=== PATIENT | male | born 1940 | race Caucasian/White ===

== ENCOUNTER → 2016-09-08 | Outpatient (CLI) | payer OTHER ==
[~2016-09-08] MED LIST: ACET-1311 PO; ARC10 PO; ASPEC325 PO; BUSP5TAB59 PO; CLXOPS3 OPL; INSU3INJ3 SQ; LISI-725 PO; LOVA40TA3 PO; LVMIPEN SQ; LZL25 PO; NVLGI/PEN SQ; VALA1TAB PO; VENL75CA73 PO
[2016-09-08 09:09] LABS: ESTIMATED AVERAGE GLUCOSE 189 mg/dl; HA1C FLAG Normal (Normal)
== END ==
LOC: C.LABCC 08:30
PROVIDERS: ATTEND Internal Medicine
DX: E11.9 Type 2 diabetes mellitus without complications (principal)

== ENCOUNTER → 2017-01-07 | Outpatient (CLI) | payer OTHER ==
[2017-01-07 13:11] LABS: ESTIMATED AVERAGE GLUCOSE 243 mg/dl; HA1C FLAG Normal (Normal)
== END | disposition home or self-care (01) ==
LOC: C.LABCC 15:43
PROVIDERS: ATTEND Internal Medicine
DX: E11.9 Type 2 diabetes mellitus without complications (principal)

== ENCOUNTER → 2017-01-26 | Outpatient (CLI) | payer OTHER ==
[2017-01-26 13:05] LABS: BASO % 0.3 %; BASO ABS # 0.02 K/uL (0-0.2); COMPLETE YES; HEMATOCRIT 39.5 % (42-52); IG% 0.5 %; LYMPH ABS # 0.78 K/uL (1.2-3.4); MEAN CELL VOLUME 90.8 fL (80-100); MEAN CORPUSCULAR HEMOGLOBIN 30.1 pg (25-34); MEAN CORPUSCULAR HGB CONC 33.2 g/dl (32-36); MEAN PLATELET VOLUME 10.7 fL (7.4-10.4); NEUT % 73.2 %; PLATELET COUNT 192 K/uL (130-400); RED BLOOD COUNT 4.35 M/uL (4.7-6.1); WHITE BLOOD COUNT 6.52 K/uL (4.8-10.8)
[2017-01-26 14:36] LABS: ALKALINE PHOSPHATASE 105 U/L (45-117); ALT/SGPT 27 U/L (12-78); AST/SGOT 17 U/L (15-37); BLOOD UREA NITROGEN 19 mg/dl (7-18); BUN/CREATININE RATIO 22.4 (10-20); CALCIUM 8.9 mg/dl (8.5-10.1); CARBON DIOXIDE 27 mmol/L (21-32); CHLORIDE 101 mmol/L (98-107); CREATININE 0.87 mg/dl (0.60-1.40); GLUCOSE 373 mg/dl (70-99); POTASSIUM 4.2 mmol/L (3.5-5.1); SODIUM 136 mmol/L (136-145)
[2017-01-26 14:49] LABS: BETA-HYDROXYBUTYRATE 1.02 mg/dL (0.2-2.81)
--- NOTE | 2017-01-30 11:04 | CODING QUERY MEDICAL NECESSITY ---
SUPPORTING DIAGNOSIS NEEDED Dr. Frances, A supporting diagnosis is required for the test/procedure performed on this patient in order for us to be reimbursed by the patient's insurance. Please provide a supporting diagnosis for the following test/procedure listed below next to the test name along with your signature. *If there is no additional diagnosis for this patient that would support the following test/procedure please document that below next to the test/procedure. Test(s)/Procedure(s) that require a supporting diagnosis: * ([id number]) VITAMIN D ASSAY DIAGNOSIS: DATE OF SERVICE: 01/26/17 Provider Signature: Date: Thank you Jeffrey Lu [facility] Information Management Once completed, please kindly fax back to [phone] For questions please call [phone]
== END | disposition home or self-care (01) ==
LOC: C.LABCC 12:25
PROVIDERS: ATTEND Internal Medicine
DX: E11.9 Type 2 diabetes mellitus without complications (principal); I10 Essential (primary) hypertension; E78.5 Hyperlipidemia, unspecified; F03.90 Unspecified dementia, unspecified severity, without behavioral disturbance, psychotic disturbance, mood disturbance, and anxiety; F32.9 Major depressive disorder, single episode, unspecified; S72.001A Fracture of unspecified part of neck of right femur, initial encounter for closed fracture; X58.XXXA Exposure to other specified factors, initial encounter

== ENCOUNTER → 2017-06-03 | Outpatient (CLI) | payer OTHER ==
[2017-06-03 09:17] LABS: BASO % 0.1 %; BASO ABS # 0.01 K/uL (0-0.2); COMPLETE YES; EOS % 4.2 %; HEMATOCRIT 43.7 % (42-52); IG% 0.5 %; LYMPH ABS # 1.11 K/uL (1.2-3.4); MEAN CELL VOLUME 93.4 fL (80-100); MEAN CORPUSCULAR HEMOGLOBIN 31.8 pg (25-34); MEAN CORPUSCULAR HGB CONC 34.1 g/dl (32-36); MEAN PLATELET VOLUME 10.9 fL (7.4-10.4); MONO % 10.7 %; NEUT % 70.5 %; PLATELET COUNT 238 K/uL (130-400); RED BLOOD COUNT 4.68 M/uL (4.7-6.1); WHITE BLOOD COUNT 7.91 K/uL (4.8-10.8)
[2017-06-03 09:25] LABS: ALT/SGPT 27 U/L (12-78); BLOOD UREA NITROGEN 18 mg/dl (7-18); BUN/CREATININE RATIO 22.4 (10-20); CALCIUM 9.2 mg/dl (8.5-10.1); CARBON DIOXIDE 29 mmol/L (21-32); CHLORIDE 102 mmol/L (98-107); GLUCOSE 210 mg/dl (70-99); MAGNESIUM 2.2 mg/dl (1.8-2.4); POTASSIUM 4.3 mmol/L (3.5-5.1); SODIUM 136 mmol/L (136-145)
[2017-06-03 09:30] LABS: ALB/GLOB RATIO 0.9 (0.9-2); ALKALINE PHOSPHATASE 103 U/L (45-117); AST/SGOT 24 U/L (15-37); CHOLESTEROL 155 mg/dl (0-200); CHOLESTEROL/HDL RATIO 5.7; HDL CHOLESTEROL 27 mg/dl; TRIGLYCERIDES 447 mg/dl (0-150)
== END ==
LOC: C.LABCC 08:39
PROVIDERS: ATTEND Internal Medicine
DX: E78.5 Hyperlipidemia, unspecified (principal)

== ENCOUNTER → 2017-10-07 | Outpatient (CLI) | payer OTHER ==
[2017-10-07 10:07] LABS: HEMOGLOBIN A1C 8.5 % (4.5-5.6)
[2017-10-07 10:12] LABS: BLOOD UREA NITROGEN 26 mg/dl (7-18); CALCIUM 9.1 mg/dl (8.5-10.1); CARBON DIOXIDE 26 mmol/L (21-32); CHOLESTEROL 147 mg/dl (0-200); CREATININE 0.97 mg/dl (0.60-1.40); GLUCOSE 240 mg/dl (70-99); POTASSIUM 4.6 mmol/L (3.5-5.1); SODIUM 134 mmol/L (136-145)
== END ==
LOC: C.LABCC 09:11
PROVIDERS: ATTEND Internal Medicine
DX: E11.9 Type 2 diabetes mellitus without complications (principal); E78.00 Pure hypercholesterolemia, unspecified

== ENCOUNTER → 2017-11-25 | Day surgery (SDC) | payer OTHER ==
[2017-11-17 12:25] VITALS: Ht 167.6 cm; Wt 95.3 kg
--- NOTE | 2017-11-19 14:10 | PAT Medication Instructions ---
Service Date Nov 19, 2017. Current Home Medication List Acetaminophen (Tylenol), 650 MG PO Q4 Aspirin (Aspirin Chewable), 81 MG PO DAILY Bisacodyl (Dulcolax), 1 SUPP AR DIRECTED PRN for Constipation Carboxymethylcellulose Sodium (Refresh Tears), 1 DROP OPB DAILY Cholecalciferol (Vitamin D3), 1 TAB PO DAILY Docusate Sodium (Docusate Sodium), 1 CAP PO QPM Donepezil Hydrochloride (Donepezil Hcl), 1 TAB PO DAILY Gabapentin (Neurontin), 200 MG PO QPM Indapamide (Indapamide), 1 TAB PO DAILY Insulin Aspart (Novolog), 10 UNITS SC TID Insulin Detemir (Levemir), 65 UNIT SC DAILY Lisinopril (Zestril), 10 MG PO QAM Lovastatin (Mevacor), 40 MG PO DAILY Magnesium Hydroxide (Milk Of Magnesia), 30 ML PO DIRECTED PRN for Constipation Mirtazapine Soltab (Remeron Soltab), 0.5 TAB PO HS Polyethylene Glycol 3350 (Miralax), 17 GM PO DAILY PRN for Constipation Sodium Phosphate/Biphosphate (Fleet Enema), 1 EA AR DAILY PRN for Constipation Valacyclovir (Valtrex), 500 MG PO DAILY PRN for PRN Venlafaxine Hcl (Effexor), 75 MG PO DAILY Medication Instructions For Your Scheduled Surgery -Check with surgeon and prescribing physician for: Aspirin (Aspirin Chewable), 81 MG PO DAILY - DO NOT TAKE the following medications the morning of surgery: Bisacodyl (Dulcolax), 1 SUPP AR DIRECTED PRN for Constipation Cholecalciferol (Vitamin D3), 1 TAB PO DAILY Lisinopril (Zestril), 10 MG PO QAM Magnesium Hydroxide (Milk Of Magnesia), 30 ML PO DIRECTED PRN for Constipation Polyethylene Glycol 3350 (Miralax), 17 GM PO DAILY PRN for Constipation Sodium Phosphate/Biphosphate (Fleet Enema), 1 EA AR DAILY PRN for Constipation Valacyclovir (Valtrex), 500 MG PO DAILY PRN for PRN - The following medications MAY be taken the morning of surgery with a sip of water: Acetaminophen (Tylenol), 650 MG PO Q4 (if needed) Carboxymethylcellulose Sodium (Refresh Tears), 1 DROP OPB DAILY Donepezil Hydrochloride (Donepezil Hcl), 1 TAB PO DAILY Lovastatin (Mevacor), 40 MG PO DAILY Venlafaxine Hcl (Effexor), 75 MG PO DAILY - The following medications may be taken the night before surgery: Acetaminophen (Tylenol), 650 MG PO Q4 (if needed) Docusate Sodium (Docusate Sodium), 1 CAP PO QPM Gabapentin (Neurontin), 200 MG PO QPM Bisacodyl (Dulcolax), 1 SUPP AR DIRECTED PRN for Constipation (if needed) Magnesium Hydroxide (Milk Of Magnesia), 30 ML PO DIRECTED PRN for Constipation (if needed) Mirtazapine Soltab (Remeron Soltab), 0.5 TAB PO HS Polyethylene Glycol 3350 (Miralax), 17 GM PO DAILY PRN for Constipation (if needed) Sodium Phosphate/Biphosphate (Fleet Enema), 1 EA AR DAILY PRN for Constipation ( if needed) Valacyclovir (Valtrex), 500 MG PO DAILY PRN for PRN (if needed) - For Insulin Dependent Diabetic patients, follow the instructions in your colonoscopy packet for: Insulin Aspart (Novolog), 10 UNITS SC TID Insulin Detemir (Levemir), 65 UNIT SC DAILY If you have any questions please call us at [phone] or [phone] or [phone]
[~2017-11-25] VITALS: Ht 167.6 cm; Wt 95.3 kg
[~2017-11-25] MED LIST changes: -ARC10 PO; +ASPCH81X PO; -ASPEC325 PO; +BISA10SU3 PR; -BUSP5TAB59 PO; +CARB0.5D28 OPB; +CHOL20007 PO; -CLXOPS3 OPL; +DOCU100C31 PO; +DONE1TAB26 PO; +EFF75 PO; +GABA-112 PO; +INDA2.5T PO; -INSU3INJ3 SQ; +LIDOCAINE HCL 2% 2 ML VIAL (20MG/ML) ONE; +LISI-461 PO; -LISI-725 PO; -LOVA40TA3 PO; +LOVA40TA4 PO; +LVMI SC; -LVMIPEN SQ; -LZL25 PO; +MIRT15TA2 PO; +MOML PO; +NVLG SC; -NVLGI/PEN SQ; +PHENYLEPHRINE 100MCG/ML 5ML SYR ONE; +POLY335019 PO; +PROPOFOL IV EMULSION 10 MG/ML 20 ML VIAL IV ONE; +SODIENE PR; -VALA1TAB PO; +VALA500T60 PO; -VENL75CA73 PO
--- NOTE | 2017-11-25 09:44 | Endo History and Physical ---
History & Physical Date of Service: Nov 25, 2017. Chief Complaint: history of polyps Referring Physician: Dr. Castillo Frances History of Present Illness H/o polyps Past Medical History Diabetes, Alzheimer's, High Cholesterol, Hypertension Past Surgical History Hx Cardiac Surgery: No Hx Internal Defibrillator: No Hx Pacemaker: No Hx Abdominal Surgery: No Hx of Implantable Prosthesis: No Hx Post-Op Nausea and Vomiting: No Hx Cancer Surgery: Yes (BCC EXCISION) Hx Thoracic Surgery: No Hx Orthopedic: Yes (ORIF RT HIP) Hx Urinary Tract Surgery: No Social History Smoking Status: Former Smoker Hx Substance Use: No Hx Alcohol Use: No Allergies Coded Allergies: No Known Allergies (Verified , 11/25/17) Current Medications Reported Home Medications Medications Dose Route/Sig Max Daily Dose Days Date Category Dose Instructions Vitamin D3 (Cholecalciferol) 2,000 Unit Tab 1 Tab PO DAILY 11/17/17 Reported Effexor (Venlafaxine Hcl) 75 Mg Tab 75 Mg PO DAILY 11/17/17 Reported Valtrex (Valacyclovir HCl) 500 Mg Tab 500 Mg PO DAILY PRN 11/17/17 Reported Refresh Tears (Carboxymethylcellulose Sodium) 0.5 % Alfredo 1 Drop OPB DAILY 11/17/17 Reported Novolog (Insulin Aspart) 100 Units/Ml Inj 10 Units SC TID 11/17/17 Reported IN ADDITION TO SLIDING SCALE. Remeron Soltab (Mirtazapine) 15 Mg Soltab 0.5 Tab PO HS 11/17/17 Reported Milk Of Magnesia (Magnesium Hydroxide) 30 Ml Susp 30 Ml PO DIRECTED PRN 11/17/17 Reported Miralax (Polyethylene Glycol 3350) 1 Pow Pow 17 Gm PO DAILY PRN 11/17/17 Reported Mevacor (Lovastatin) 40 Mg Tab 40 Mg PO DAILY 11/17/17 Reported Zestril (Lisinopril) 10 Mg Tab 10 Mg PO QAM 11/17/17 Reported Levemir (Insulin Detemir) 100 Units/Ml Inj 65 Unit SC DAILY 11/17/17 Reported Indapamide 2.5 Mg Tab 1 Tab PO DAILY 11/17/17 Reported Neurontin (Gabapentin) 100 Mg Cap 200 Mg PO QPM 11/17/17 Reported Fleet Enema (Sodium Phosphate/Biphosphate) Jina 1 Ea [place] DAILY PRN 11/17/17 Reported Dulcolax (Bisacodyl) 10 Mg Sup 1 Supp TX DIRECTED PRN 11/17/17 Reported Donepezil Hcl (Donepezil Hydrochloride) 10 Mg Tab 1 Tab PO DAILY 11/17/17 Reported Docusate Sodium 100 Mg Cap 1 Cap PO QPM 11/17/17 Reported Aspirin Chewable (Aspirin) 81 Mg Chew 81 Mg PO DAILY 11/17/17 Reported Tylenol (Acetaminophen) 325 Mg Tab 650 Mg PO Q4 04/13/16 Reported not to exceed 3000mg/24hrs Vital Signs Weight (Kilograms): 95.27 Height (Feet): 0 Height (Inches): 66 Physical Exam General Appearance: no apparent distress Respiratory/Chest: Auscultation: breath sounds normal Cardiovascular: Heart Auscultation: RRR Abdomen: Inspection & Palpation: soft Assessment and Plan H/o polyps - cscopy
--- NOTE | 2017-11-25 10:30 | GI REPORT ---
Procedure Date: 11/25/2017 9:51 AM Procedure: Colonoscopy Indications: High risk colon cancer surveillance: Personal history of colonic polyps Medicines: See the Anesthesia note for documentation of the administered medications Complications: No immediate complications. Estimated Blood Loss: Estimated blood loss was minimal. Procedure: Pre-Anesthesia Assessment: - ASA Grade Assessment: III - A patient with severe systemic disease. After I obtained informed consent, the scope was passed under direct vision. Throughout the procedure, the patient's blood pressure, pulse, and oxygen saturations were monitored continuously. The scope was introduced through the anus and advanced to the terminal ileum. The colonoscopy was performed without difficulty. The patient tolerated the procedure well. The quality of the bowel preparation was fair. Findings: The perianal and digital rectal examinations were normal. Multiple small and large-mouthed diverticula were found in the entire colon. A 5 mm polyp was found in the ascending colon. The polyp was sessile. The polyp was removed with a cold snare. Resection and retrieval were complete. A 2 mm polyp was found in the ascending colon. The polyp was sessile. The polyp was removed with a cold biopsy forceps. Resection and retrieval were complete. Hemorrhoids on retroflexion. The exam was otherwise normal throughout the examined colon. The terminal ileum contained a single diminutive diverticulum. Ileum was normal. Impression: - Preparation of the colon was fair. - Hemorrhoids. - Diverticulosis in the entire examined colon. - One 5 mm polyp in the ascending colon, removed with a cold snare. Resected and retrieved. - One 2 mm polyp in the ascending colon, removed with a cold biopsy forceps. Resected and retrieved. - Ileal diverticulum. Recommendation: - Repeat exam in 1 year due to prep quality. - Discharge patient to home. Huy Kenyon M.D. Huy Kenyon MD 11/25/2017 10:30:03 AM This report has been signed electronically. Note Initiated On: 11/25/2017 9:51 AM I attest to the content of the Intraoperative Record and orders documented therein, exceptions below
--- NOTE | 2017-11-25 10:31 | Discharge Instructions ---
Endoscopy Patient Instructions Date / Procedure(s) Performed Nov 25, 2017. Colonoscopy Allergy Information Coded Allergies: No Known Allergies (Verified , 11/25/17) Discharge Date / Findings Nov 25, 2017. Diminutive polyp x 2 in asc colon, Diverticulosis, hemorrhoids, fair prep Provider Instructions Activity Restrictions - No exercising or heavy lifting for 24 hours. - Do not drink alcohol the day of the procedure. - Do not drive a car or operate machinery until the day after the procedure. - Do not make any important decisions or sign important papers in 24 hours after the procedure. Following Day: - Return to full activity which may include returning to work/school. Diet Start your diet with liquids and light foods (jello, soup, juice, toast). Then eat your usual diet if not nauseated. Treatment For Common After Affects For mild abdominal pain, bloating, or excessive gas: - Rest - Eat lightly - Lie on right side Follow-Up Information Follow-up with Dr. Castillo Frances as scheduled Anesthesia Information What You Should Know You have had a procedure that required some medicine to reduce anxiety and discomfort. This treatment is called moderate sedation. After receiving the treatment, you may be sleepy, but you will be able to breathe on your own. The effects of the treatment may last for several hours. Follow these instructions along with Activity/Diet recommendations noted above: * Do NOT do anything where dizziness or clumsiness would be dangerous. * Rest quietly at home today, then you can be up and about tomorrow. * Have a responsible person stay with you the rest of today. * You may have had an I.V. today. If so, you may take the dressing off later today. Recommendations Call your doctor if: * Trouble breathing * Continuous vomiting for more than 24 hours * Temperature above 101 degrees * Severe abdominal pain or bloating * Pain not relieved by pain medicine ordered * There is increased drainage or redness from any incision * A large amount of rectal bleeding greater than 2-3 tablespoons. (If you had a polyp/s removed or have hemorrhoids, a small amount of blood - from the rectum is to be expected.) * You have any unanswered questions or concerns. IN THE EVENT OF A SERIOUS EMERGENCY, GO TO THE NEAREST EMERGENCY ROOM Your discharge instructions were prepared by provider Huy Troy. Patient Instructions Signature Page Sarbjit Odom Patient (or Guardian) Signature/Date: I have read and understand the instructions given to me by my caregivers. Caregiver/RN/Doctor Signature/Date: The above-named patient and/or guardian has received patient instructions on this date. + Original Patient Signature Page (only) stays with chart. Please make copy for patient.
[2017-11-25 11:05] VITALS: BP 154/85; PULSE 96; O2SAT 98
--- NOTE | 2017-11-25 11:22 | Anesthesiology Progress Note ---
Anesthesia Post Op Note Date & Time Nov 25, 2017 at 11:22 Vital Signs Pain Intensity: 0 Vital Signs Past 12 Hours Date Time Temp Pulse Resp B/P (MAP) Pulse Ox O2 Delivery O2 Flow Rate FiO2 11/25/17 11:05 96 20 154/85 (108) 98 Room Air 11/25/17 10:45 94 20 151/76 (101) 96 Room Air 11/25/17 10:29 36.2 87 20 120/64 (82) 95 Room Air 11/25/17 09:43 36.5 99 20 133/81 (98) 97 Room Air Notes Mental Status: alert / awake / arousable, participated in evaluation Pt Amnestic to Procedure: Yes Nausea / Vomiting: adequately controlled Pain: adequately controlled Airway Patency, RR, SpO2: stable & adequate BP & HR: stable & adequate Hydration State: stable & adequate Anesthetic Complications: no major complications apparent
== END | disposition home or self-care (01) ==
LOC: C.GI 09:13
PROVIDERS: ATTEND Internal Medicine Gastroenterology
DX: Z12.11 Encounter for screening for malignant neoplasm of colon (principal); Z86.010 Personal history of colon polyps; K57.30 Diverticulosis of large intestine without perforation or abscess without bleeding; D12.2 Benign neoplasm of ascending colon; K64.9 Unspecified hemorrhoids; G30.9 Alzheimer's disease, unspecified; I10 Essential (primary) hypertension; E11.9 Type 2 diabetes mellitus without complications; E78.00 Pure hypercholesterolemia, unspecified; F32.9 Major depressive disorder, single episode, unspecified; Z98.890 Other specified postprocedural states; Z87.891 Personal history of nicotine dependence; Z79.899 Other long term (current) drug therapy; Z79.4 Long term (current) use of insulin; Z79.82 Long term (current) use of aspirin

== ENCOUNTER 2021-12-06 13:10 | Inpatient (IN) ==
--- NOTE | 2021-12-05 09:51 | PAT Medication Instructions ---
Medication Instructions Date of Service December 05, 2021 Home Medications polyethylene glycol 3350 17 gram/dose oral powder (Miralax) 17 g PO DAILY PRN acetaminophen 325 mg tablet 650 mg PO Q6 PRN MDD 3 GM APAP/24 HOURS bisacodyl 10 mg rectal suppository (Dulcolax (bisacodyl)) 10 mg SD DIRECTED PRN cholecalciferol (vitamin D3) 50 mcg (2,000 unit) capsule (Vitamin D3) 2,000 unit PO DAILY docusate sodium 100 mg capsule 100 mg PO QPM gabapentin 100 mg capsule 200 mg PO HS indapamide 2.5 mg tablet 2.5 mg PO QAM insulin aspart U-100 100 unit/mL subcutaneous solution (Novolog U-100 Insulin aspart) 10 unit SUBCUT TID lisinopril 10 mg tablet 10 mg PO QAM magnesium hydroxide 400 mg/5 mL oral suspension (Milk of Magnesia) 30 ml PO DIRECTED PRN mirtazapine 15 mg tablet 7.5 mg PO HS sodium phosphates 19 gram-7 gram/118 mL enema (Fleet Enema) 118 ml SD DIRECTED PRN valacyclovir 1 gram tablet 1,000 mg PO QAM venlafaxine 75 mg capsule,extended release 24 hr 75 mg PO QAM insulin detemir U-100 100 unit/mL (3 mL) subcutaneous pen (Levemir FlexTouch U- 100 Insulin) 40 unit SC BID insulin lispro 100 unit/mL subcutaneous pen See Rx Instructions .ROUTE .COMPLEX multivitamin 1 cap PO QAM pantoprazole 40 mg tablet,delayed release 40 mg PO DAILY PreserVision AREDS-2 2 tab PO QAM STOP taking 2 weeks before surgery (or as soon as possible if surgery is within 2 weeks) PreserVision AREDS-2 2 tab PO QAM DO NOT take the morning of surgery polyethylene glycol 3350 17 gram/dose oral powder (Miralax) 17 g PO DAILY PRN bisacodyl 10 mg rectal suppository (Dulcolax (bisacodyl)) 10 mg SD DIRECTED PRN cholecalciferol (vitamin D3) 50 mcg (2,000 unit) capsule (Vitamin D3) 2,000 unit PO DAILY indapamide 2.5 mg tablet 2.5 mg PO QAM insulin aspart U-100 100 unit/mL subcutaneous solution (Novolog U-100 Insulin aspart) 10 unit SUBCUT TID lisinopril 10 mg tablet 10 mg PO QAM magnesium hydroxide 400 mg/5 mL oral suspension (Milk of Magnesia) 30 ml PO DIRECTED PRN sodium phosphates 19 gram-7 gram/118 mL enema (Fleet Enema) 118 ml SD DIRECTED PRN insulin lispro 100 unit/mL subcutaneous pen See Rx Instructions .ROUTE .COMPLEX multivitamin 1 cap PO QAM Take morning of surgery With a small sip of water, OTHERWISE NOTHING TO EAT OR DRINK AFTER MIDNIGHT: acetaminophen 325 mg tablet 650 mg PO Q6 PRN MDD 3 GM APAP/24 HOURS (okay to take up to 4 hours prior to surgery if needed) valacyclovir 1 gram tablet 1,000 mg PO QAM venlafaxine 75 mg capsule,extended release 24 hr 75 mg PO QAM pantoprazole 40 mg tablet,delayed release 40 mg PO DAILY Take evening before surgery polyethylene glycol 3350 17 gram/dose oral powder (Miralax) 17 g PO DAILY PRN (if needed) acetaminophen 325 mg tablet 650 mg PO Q6 PRN MDD 3 GM APAP/24 HOURS (if needed) bisacodyl 10 mg rectal suppository (Dulcolax (bisacodyl)) 10 mg SD DIRECTED PRN (if needed) docusate sodium 100 mg capsule 100 mg PO QPM gabapentin 100 mg capsule 200 mg PO HS insulin aspart U-100 100 unit/mL subcutaneous solution (Novolog U-100 Insulin aspart) 10 unit SUBCUT TID magnesium hydroxide 400 mg/5 mL oral suspension (Milk of Magnesia) 30 ml PO DIRECTED PRN (if needed) mirtazapine 15 mg tablet 7.5 mg PO HS sodium phosphates 19 gram-7 gram/118 mL enema (Fleet Enema) 118 ml SD DIRECTED PRN (if needed) insulin detemir U-100 100 unit/mL (3 mL) subcutaneous pen (Levemir FlexTouch U- 100 Insulin) 40 unit SC BID insulin lispro 100 unit/mL subcutaneous pen See Rx Instructions .ROUTE .COMPLEX Insulin Dependent Diabetic Patients * Test your blood sugar the morning of surgery * If Blood Sugar is GREATER THAN 150, take HALF of your regular dose of: insulin detemir U-100 100 unit/mL (3 mL) subcutaneous pen (Levemir FlexTouch U-100 Insulin) take 20 units * If Blood Sugar is LESS THAN 150, DO NOT TAKE ANY: insulin detemir U-100 100 unit/mL (3 mL) subcutaneous pen (Levemir FlexTouch U-100 Insulin) Other Notes If you have any questions please call us at [phone] or [phone] or [phone] or [phone]
--- NOTE | 2021-12-05 10:29 | Anesthesiology Consultation ---
Date of Service December 05, 2021 Assessment & Plan Chart Review Chart Review: Acceptable Risk for Surgery and Patient NOT seen in Pre Admission Testing Consults Requested none ASA ASA4 History Surgery Operation Date: 12/06/21 15:25 Proposed Procedures p Right Ankle Partial Calcaneal Osteotomy - Dayorn Christian DO s Debridement Calcaneal Ulcer, Implantation of Antibiotic Beads - Dayron Christian DO Height/Weight Height: 5 ft 5 in Weight: 90.9 kg Allergies Allergy/AdvReac Type Severity Reaction Status Date / Time No Known Allergies Allergy Verified 12/04/21 15:23 Medications Home Medications Medication Instructions Recorded Confirmed Last Taken polyethylene glycol 3350 17 17 g PO DAILY PRN #255 g 11/17/17 12/05/21 Unknown gram/dose oral powder (Miralax) acetaminophen 325 mg tablet 650 mg PO Q6 PRN MDD 3 GM APAP/03/02/20 12/05/21 03/01/20 HOURS bisacodyl 10 mg rectal suppository 10 mg ID DIRECTED PRN 03/02/20 12/05/21 Unknown (Dulcolax (bisacodyl)) cholecalciferol (vitamin D3) 50 2,000 unit PO DAILY 03/02/20 12/05/21 06/13/21 08:00 mcg (2,000 unit) capsule (Vitamin D3) docusate sodium 100 mg capsule 100 mg PO QPM 03/02/20 12/05/21 06/12/21 20:30 gabapentin 100 mg capsule 200 mg PO HS 03/02/20 12/05/21 06/12/21 20:30 indapamide 2.5 mg tablet 2.5 mg PO QAM 03/02/20 12/05/21 06/13/21 08:00 insulin aspart U-100 100 unit/mL 10 unit SUBCUT TID 03/02/20 12/05/21 06/13/21 12:30 subcutaneous solution (Novolog U-100 Insulin aspart) lisinopril 10 mg tablet 10 mg PO QAM 03/02/20 12/05/21 06/13/21 08:00 magnesium hydroxide 400 mg/5 mL 30 ml PO DIRECTED PRN 03/02/20 12/05/21 04/03/20 09:20 oral suspension (Milk of Magnesia) mirtazapine 15 mg tablet 7.5 mg PO HS 03/02/20 12/05/21 06/12/21 20:30 sodium phosphates 19 gram-7 118 ml ID DIRECTED PRN 03/02/20 12/05/21 Unknown gram/118 mL enema (Fleet Enema) valacyclovir 1 gram tablet 1,000 mg PO QAM 03/02/20 12/05/21 06/13/21 08:00 venlafaxine 75 mg capsule,extended 75 mg PO QAM 03/02/20 12/05/21 06/13/21 08:00 release 24 hr insulin detemir U-100 100 unit/mL 40 unit SC BID 04/04/20 12/05/21 06/13/21 08:30 (3 mL) subcutaneous pen (Levemir FlexTouch U-100 Insulin) insulin lispro 100 unit/mL See Rx Instructions .ROUTE .COMPLEX 04/04/20 12/05/21 06/13/21 11:30 subcutaneous pen 12 units multivitamin 1 cap PO QAM 12/05/21 12/05/21 Unknown pantoprazole 40 mg tablet,delayed 40 mg PO DAILY 12/05/21 12/05/21 Unknown release vit C 250 mg-vit E 90 mg-zinc 40 2 tab PO QAM 12/05/21 12/05/21 Unknown mg-copper 1 [id number] capsule (PreserVision AREDS-2) Past Medical History Medical History Alzheimer's dementia Cellulitis of right lower limb hx-2020 Dementia Diabetes IDDM, Diabetic polyneuropathy Dysthymic disorder Foot osteomyelitis, right hx Herpesviral iridocyclitis Hip fracture History of colon polyps History of COVID-19 unsure when per [facility] record HTN (hypertension) Hx of skin malignancy Hyperlipidemia Major depressive disorder 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 Hx of colonoscopy Past Anesthesia History No Hx of Anesthesia Complications and No Family Hx of Anesthesia Complications History of PONV No Hx of PONV and No Hx of Motion Sickness Social History Smoking Status: Former smoker tobacco type: cigarettes Do You Dip or Chew Tobacco: No Hx Alcohol Use: No ([facility]) Hx Substance Use: No ([facility]) substance use type: does not use Testing Electrocardiogram Date: 06/05/21 Findings: + NSR @ (at 70)
--- NOTE | 2021-12-06 10:24 | History & Physical Report ---
Date of Service December 06, 2021 Assessment & Plan (1) Ulcer of right heel: Plan: Schedule a Right Ankle Partial Calcaneal Osteotomy, Debridement Calcaneal Ulcer, Implantation of Stimulan Antibiotic Beads for 12/06/2021. All potential risks, benefits, complications, alternatives, and rehab have been discussed with the patient and he and his family wish to proceed. Plan for aspirin 81 mg twice daily x4 weeks for postoperative blood clot prophylaxis. (2) Acute osteomyelitis of right calcaneus: History of Present Illness Chief Complaint: Right foot ulcer Primary Care Provider: [facility] This is a patient who has been treated for a long time for a right foot chronic plantar heel ulceration. The ulceration is failed to heal despite multiple surgical procedures. Recent imaging noted osteomyelitis at the calcaneus. He is now being set up for surgical management of the ulceration and excision of the infected portion of the calcaneus bone. Allergies Allergy/AdvReac Type Severity Reaction Status Date / Time No Known Allergies Allergy Verified 12/04/21 15:23 Home Medications Medication Instructions Recorded Confirmed Type polyethylene glycol 3350 17 17 g PO DAILY PRN #255 g 11/17/17 12/05/21 History gram/dose oral powder (Miralax) acetaminophen 325 mg tablet 650 mg PO Q6 PRN MDD 3 GM APAP/03/02/20 12/05/21 History HOURS bisacodyl 10 mg rectal suppository 10 mg OK DIRECTED PRN 03/02/20 12/05/21 History (Dulcolax (bisacodyl)) cholecalciferol (vitamin D3) 50 2,000 unit PO DAILY 03/02/20 12/05/21 History mcg (2,000 unit) capsule (Vitamin D3) docusate sodium 100 mg capsule 100 mg PO QPM 03/02/20 12/05/21 History gabapentin 100 mg capsule 200 mg PO HS 03/02/20 12/05/21 History indapamide 2.5 mg tablet 2.5 mg PO QAM 03/02/20 12/05/21 History insulin aspart U-100 100 unit/mL 10 unit SUBCUT TID 03/02/20 12/05/21 History subcutaneous solution (Novolog U-100 Insulin aspart) lisinopril 10 mg tablet 10 mg PO QAM 03/02/20 12/05/21 History magnesium hydroxide 400 mg/5 mL 30 ml PO DIRECTED PRN 03/02/20 12/05/21 History oral suspension (Milk of Magnesia) mirtazapine 15 mg tablet 7.5 mg PO HS 03/02/20 12/05/21 History sodium phosphates 19 gram-7 118 ml OK DIRECTED PRN 03/02/20 12/05/21 History gram/118 mL enema (Fleet Enema) valacyclovir 1 gram tablet 1,000 mg PO QAM 03/02/20 12/05/21 History venlafaxine 75 mg capsule,extended 75 mg PO QAM 03/02/20 12/05/21 History release 24 hr insulin detemir U-100 100 unit/mL 40 unit SC BID 04/04/20 12/05/21 History (3 mL) subcutaneous pen (Levemir FlexTouch U-100 Insulin) insulin lispro 100 unit/mL See Rx Instructions .ROUTE .COMPLEX 04/04/20 12/05/21 History subcutaneous pen multivitamin 1 cap PO QAM 12/05/21 12/05/21 History pantoprazole 40 mg tablet,delayed 40 mg PO DAILY 12/05/21 12/05/21 History release vit C 250 mg-vit E 90 mg-zinc 40 2 tab PO QAM 12/05/21 12/05/21 History mg-copper 1 [id number]-[id number] capsule (PreserVision AREDS-2) Past Med/Surg History Medical History Alzheimer's dementia Cellulitis of right lower limb hx-2020 Dementia Diabetes IDDM, Diabetic polyneuropathy Dysthymic disorder Foot osteomyelitis, right hx Herpesviral iridocyclitis Hip fracture History of colon polyps History of COVID-19 unsure when per [facility] record HTN (hypertension) Hx of skin malignancy Hyperlipidemia Major depressive disorder Non-pressure chronic ulcer of other part of right foot with muscle involvement without evidence of necrosis residential resident [facility] residential Peripheral artery disease Personal history of other malignant neoplasm of skin S/P right hip fracture IM Nail Weakness Surgical History History of incision and drainage last 06/08/30 @ [facility] and 03/02/20, MAC + PNB, no complications. Hx of colonoscopy Social History Smoking Status: Former smoker Second Hand Exposure: No; Hx Alcohol Use: No ([facility]) Hx Substance Use: No ([facility]) Preferred Language: Kittitian Communication Ability: Effective Laboratory Worker Required: No Beliefs That Will Affect Care: None Current Living Situation: Penitentiary Current Living Situation Comment: Lives at [facility] Feels Safe at Home: Yes Assistive Devices: Walker Physical Exam Constitutional: well developed and well nourished; no acute distress ENMT: external ear and nose normal, oropharynx normal Neck: trachea midline Respiratory: normal respiratory effort, lungs clear to auscultation Cardiovascular: Rate/Rhythm: regular rate and regular rhythm Gastrointestinal (Abdomen): normal bowel sounds, soft, nontender, no he patosplenomegaly Musculoskeletal: Ankle: + ankle abnormal to inspection (Plantar right heel ulcer); no skin erythema and no ecchymosis Skin: + ulcer (Plantar right heel with macerated wound edges) Neurologic: + abnormal touch/pain/proprioception Psychiatric: Orientation: alert Speech: normal rate/rhythm/volume of speech Lymphatic: no cervical or axillary lymphadenopathy
[~2021-12-06 13:10] MED LIST changes: -ACET-1311 PO; -ASPCH81X PO; -BISA10SU3 PR; +BUPIVACAINE 0.25% 30 ML VIAL ONE; -CARB0.5D28 OPB; -CHOL20007 PO; -DOCU100C31 PO; -DONE1TAB26 PO; -EFF75 PO; +EPINEPHrine INJ 1 MG/ML AMP ONE; -GABA-112 PO; +GENTAMICIN SULFATE 40 MG/ML 2 ML VIAL ONE; -INDA2.5T PO; -LIDOCAINE HCL 2% 2 ML VIAL (20MG/ML) ONE; -LISI-461 PO; -LOVA40TA4 PO; -LVMI SC; -MIRT15TA2 PO; -MOML PO; -NVLG SC; +ONDANSETRON INJ 2 MG/ML 2 ML VIAL ONE; -PHENYLEPHRINE 100MCG/ML 5ML SYR ONE; -POLY335019 PO; -SODIENE PR; +SODIUM CHLORIDE 0.9% 1000ML IV SCH; -VALA500T60 PO; +VANCOMYCIN HCL 1000MG/20ML VIAL ONE; +ceFAZolin 2000MG 2,000 MG/15 ML SYR IV SCH; +ceFAZolin 330 MG/ML 1 GM VIAL ONE
[2021-12-06] MEDS ORDERED: fentaNYL citrate 100 MCG/2 ML VIAL IV PRN (14:17)
[2021-12-06] MEDS ORDERED: ONDANSETRON INJ 2 MG/ML 2 ML VIAL IV PRN ×2 (14:17→19:01)
[2021-12-06] MEDS ORDERED: ePHEDrine sulfate 50 MG/ML AMP IV PRN (14:17)
[2021-12-06] MEDS ORDERED: ATROPINE SULFATE 0.1 MG/ML 10ML SYR IV PRN (14:17)
[2021-12-06] MEDS ORDERED: HYDROmorphone INJ 2 MG/ML SYR/VIAL IV PRN (14:17)
[2021-12-06] MEDS ORDERED: PROPOFOL IV EMULSION 10 MG/ML 20 ML VIAL IV ONE (14:25)
[2021-12-06] MEDS ORDERED: LIDOCAINE 2% 2 ML VIAL/AMP(20MG/ML) INFIL ONE (14:28)
[2021-12-06] MEDS ORDERED: fentaNYL citrate 100 MCG/2 ML VIAL ONE (14:28)
--- NOTE | 2021-12-06 15:25 | History & Physical Bridge Note ---
Date of Service December 06, 2021 History & Physical Bridge Note I have examined the patient, reviewed the History & Physical and in the interval since the performance of the History & Physical I have noted the following changes of clinical significance: no changes noted
[2021-12-06] MEDS ORDERED: ROCURONIUM BROMIDE 10 MG/ML 5 ML VIAL IV ONE (15:45)
[2021-12-06] MEDS ORDERED: ceFAZolin 330 MG/ML 1 GM VIAL ONE (16:02)
[2021-12-06] MEDS ORDERED: BUPIVACAINE 0.5 % 5 MG/1 ML MPF 30ML VIAL ONE (16:02)
[2021-12-06] MEDS ORDERED: ONDANSETRON INJ 2 MG/ML 2 ML VIAL ONE (16:50)
[2021-12-06] MEDS ORDERED: DEXAMETHASONE SOD INJ 4 MG/ML VIAL ONE (16:50)
[2021-12-06] MEDS ORDERED: NEOSTIGMINE METHYLSULFATE 1 MG/ML 10ML VIAL ONE (17:39)
[2021-12-06] MEDS ORDERED: GLYCOPYRROLATE 0.2 MG/ML VIAL ONE (17:39)
--- NOTE | 2021-12-06 17:56 | Post Operative Brief Note ---
Immediate Post Op Note v1 Date of Surgery December 06, 2021 Pre & Post Diagnosis Operation Date: 12/06/21 15:25 Pre-Op Diagnosis: Osteomyelitis right calcaneus, diabetic neuropathic ulcer of Right Heel 2.0 x 1.0 x 1.0 cm Post-Op Diagnosis: Osteomyelitis right calcaneus, diabetic neuropathic ulcer of Right Heel 2.0 x 1.0 x 1.0 cm I identified the patient and participated in the time-out.: Yes Procedure Operation Date: 12/06/21 15:25 Actual Procedures p Right Ankle Partial Calcaneal Ostectomy(Right) - Dayron Christian DO s Irrigation and debridement diabetic neuropathic plantar heel ulcer 2.0 x 1.0 x 1.0 cm including skin, subcutaneous tissue, fascia and periosteum (Right) - Dayron Christian DO Surgeon Dayron Christian DO Rectifying Attendant Dash Lynn PA-C, Renate Trevino PA-C Estimated Blood Loss 1 Findings Consistent with Post-Op Diagnosis Specimens Osteomyelitic plantar calcaneal bone for pathologic specimen Drains Other (1/2 inch iodoform gauze drains x2 separate sites plantar heel) Complications none Disposition Accompanied Patient To Recovery: No
[2021-12-06] MEDS ORDERED: MAGNESIUM HYDROXIDE SUSP 30 ML UDC PO PRN ×2 (19:01)
[2021-12-06] MEDS ORDERED: METOCLOPRAMIDE HCL INJ 5 MG/ML 2 ML VIAL IV PRN (19:01)
[2021-12-06] MEDS ORDERED: SOD PHOSPHATE/SOD BIPHOSPHATE ENEMA 132 ML BTL PR PRN (19:01)
[2021-12-06] MEDS ORDERED: NON-FORMULARY MEDICATION (Insulin Lispro 100 unit/mL Insulin Pen) SCH (19:01)
[2021-12-06] MEDS ORDERED: PHARMACY GLYCEMIC MGMT CONSULT PRN (19:01)
[2021-12-06] MEDS ORDERED: NALOXONE HCL 0.4 MG/1 ML VIAL/CARP IV PRN (19:01)
[2021-12-06] MEDS ORDERED: HYDROmorphone INJ 0.5 MG/0.5 ML SYR IV PRN (19:01)
[2021-12-06] MEDS ORDERED: oxyCODONE HCL IR 5 MG TAB (IMMEDIATE RELEASE) PO PRN (19:01)
[2021-12-06] MEDS ORDERED: diphenhydrAMINE Capsule 25 MG CAP PO PRN (19:01)
[2021-12-06] MEDS ORDERED: bisacodyL 10 MG SUPP PR PRN ×2 (19:01)
[2021-12-06] MEDS ORDERED: POLYETHYLENE (MIRALAX) 17 GM PACK PO PRN (19:01)
--- NOTE | 2021-12-06 19:17 | Anesthesiology Progress Note ---
Date of Service December 06, 2021 Anesthesia Post Procedure Vital Signs Vital Signs: Temp Pulse Pulse Pulse Resp BP Pulse Ox 12/06/21 19:02 36.3 C L 87 16 153/77 H 97 12/06/21 18:35 36.4 C L 85 18 123/56 L 98 12/06/21 18:25 83 18 114/54 L 96 12/06/21 18:15 77 16 131/67 96 12/06/21 18:07 36.0 C L 80 16 124/63 96 12/06/21 13:45 36.5 C 94 H 16 140/86 97 Transfer of Care Handoff Completed per policy Notes Mental Status: alert / awake / arousable Patient Amnestic to Procedure: Yes Nausea / Vomiting: adequately controlled Pain: adequately controlled Airway Patency, RR, SpO2: stable & adequate BP & HR: stable & adequate Hydration State: stable & adequate Anesthetic Complications: no major complications apparent
[2021-12-06] MEDS ORDERED: DEXTROSE 50% 50 ML SYRINGE IV PRN (19:30)
[2021-12-06] MEDS ORDERED: GLUCOSE 40% GEL 15 GM TUBE PO PRN (19:30)
[2021-12-06] MEDS ORDERED: GLUCOSE 10 TABS/TUBE PO PRN (19:30)
[2021-12-06] MEDS ORDERED: GLUCAGON FOR INJ 1 MG VIAL IM PRN (19:30)
--- NOTE | 2021-12-06 19:46 | Hospitalist Consultation ---
Date of Consultation December 06, 2021 Assessment & Plan (1) Acute osteomyelitis of left calcaneus: 81yo male with IDDM2, HTN, HLD, PAD, anxiety, and history of acute right calcaneus osteomyelitis who was admitted by orthopedics earlier today for a planned right ankle partial calcaneal ostectomy and irrigation/debridement of a diabetic neuropathic plantar heel ulcer. Patient tolerated the procedure well without complications. The hospitalist service was consulted for routine post-op medical management. Acute right calcaneus osteomyelitis s/p partial calcaneal ostectomy (12/06) Diabetic neuropathic plantar heel ulcer s/p irrigation/debridement (12/06) Continue cefazolin - duration deferred to orthopedic team Pain control: APAP 1000mg PO q8h Oxycodone 5-10mg PO q4h prn moderate pain Hydromorphone 0.5mg IV q4h prn severe pain Continue ASA 81mg bid x4 weeks for postoperative DVT prophylaxis, per orthopedic team IDDM2, neuropathic pain HbA1c 7.5% (11/04/21) Will hold patient's home basal insulin and place on ISS for tight BSG control (goal 120-150) postoperatively Continue BSG checks, hypoglycemic protocol Unclear why patient is not on a statin currently Was on lovastatin in the past but appears to have been discontinued in 2020; patient unsure why Lipid profile ordered; if LDL>50, will discuss with patient re: starting a high-intensity statin Continue gabapentin for neuropathic pain HTN BP intermittently elevated, though not to a concerning degree Continue home indapamide, lisinopril HLD, PAD Continue ASA Unclear why patient is not on a statin currently Was on lovastatin in the past but appears to have been discontinued in 2019; patient unsure why Lipid profile ordered; if LDL>50, will discuss with patient re: starting a high-intensity statin Anxiety Continue home mirtazapine, venlafaxine FEN: heart-healthy, DM2 diet Code status: full code DVT ppx: ASA as per orthopedic team Isolation: contact PT/OT: deferred to orthopedic team Dispo: med/surg (2) Alzheimer's dementia: (3) Diabetes: (4) Ulcer of right heel: (5) Peripheral arterial disease: (6) HTN (hypertension): (7) Foot osteomyelitis, right: (8) Diabetic ulcer of right heel associated with type 2 diabetes mellitus: Supervising Physician Co-Signing Physician Notes Attending addendum: I have supervised the medical residents activities, and agree with the H&P unless as otherwise noted. Assessment and Plan: Status post orthopedic surgery/status post partial calcaneal ostectomy for acute right calcaneus osteomyelitis/ Status post irrigation debridement for diabetic neuropathic plantar heel ulcer Seen postoperatively is medically stable Antibiotics and pain control per orthopedic admission service Diabetes mellitus- Decrease Levemir from 40 to 20 units subcu twice daily Placed on Accu-Cheks before meals and at bedtime with NovoLog coverage per scale Glycemic consult has been placed Hypertension- Indapamide and lisinopril with hold parameters, hold if bump in creatinine GERD- Continue pantoprazole Continue all other medications as noted We will follow during hospital stay History of Present Illness Attending Physician: Dayron Christian, DO History of Present Illness 81yo male with IDDM2, HTN, HLD, PAD, Alzheimer's dementia, and history of acute bilateral calcaneus osteomyelitis who was admitted by orthopedics earlier today for a planned right ankle partial calcaneal ostectomy and irrigation/debridement of a diabetic neuropathic plantar heel ulcer. Patient tolerated the procedure well without complications. The hospitalist service was consulted for routine post-op medical management. This evening, patient feels well - his only complaint is that he wants to be in the bedside chair rather than in bed, but per RN, patient has been instructed to stay in bed to avoid putting pressure on his surgical site. Patient denies pain at this time including foot or heel pain, chest pain, abdominal pain, or headache. Patient denies fever, chills, nausea, vomiting, lightheadedness, or other symptoms. Allergies Allergy/AdvReac Type Severity Reaction Status Date / Time No Known Allergies Allergy Verified 12/04/21 15:23 Home Medications Medication Instructions Recorded Confirmed Type polyethylene glycol 3350 17 17 g PO DAILY PRN #255 g 11/17/17 12/06/21 History gram/dose oral powder (Miralax) acetaminophen 325 mg tablet 650 mg PO Q6 PRN MDD 3 GM APAP/24 03/02/20 12/06/21 History HOURS bisacodyl 10 mg rectal suppository 10 mg ID DIRECTED PRN 03/02/20 12/06/21 History (Dulcolax (bisacodyl)) cholecalciferol (vitamin D3) 50 2,000 unit PO DAILY 03/02/20 12/06/21 History mcg (2,000 unit) capsule (Vitamin D3) docusate sodium 100 mg capsule 100 mg PO QPM 03/02/20 12/06/21 History gabapentin 100 mg capsule 200 mg PO HS 03/02/20 12/06/21 History indapamide 2.5 mg tablet 2.5 mg PO QAM 03/02/20 12/06/21 History insulin aspart U-100 100 unit/mL 10 unit SUBCUT TID 03/02/20 12/06/21 History subcutaneous solution (Novolog U-100 Insulin aspart) lisinopril 10 mg tablet 10 mg PO QAM 03/02/20 12/06/21 History magnesium hydroxide 400 mg/5 mL 30 ml PO DIRECTED PRN 03/02/20 12/06/21 History oral suspension (Milk of Magnesia) mirtazapine 15 mg tablet 7.5 mg PO HS 03/02/20 12/06/21 History sodium phosphates 19 gram-7 118 ml ID DIRECTED PRN 03/02/20 12/06/21 History gram/118 mL enema (Fleet Enema) valacyclovir 1 gram tablet 1,000 mg PO QAM 03/02/20 12/06/21 History venlafaxine 75 mg capsule,extended 75 mg PO QAM 03/02/20 12/06/21 History release 24 hr insulin detemir U-100 100 unit/mL 40 unit SC BID 04/04/20 12/06/21 History (3 mL) subcutaneous pen (Levemir FlexTouch U-100 Insulin) insulin lispro 100 unit/mL See Rx Instructions .ROUTE .COMPLEX 04/04/20 12/06/21 History subcutaneous pen multivitamin 1 cap PO QAM 12/05/21 12/06/21 History pantoprazole 40 mg tablet,delayed 40 mg PO DAILY 12/05/21 12/06/21 History release vit C 250 mg-vit E 90 mg-zinc 40 2 tab PO QAM 12/05/21 12/06/21 History mg-copper 1 [id number] capsule (PreserVision AREDS-2) artificial tears solution eye drops 1 drp OPHTHALMIC (EYE) QID 12/06/21 12/06/21 History Patient History Medical History Alzheimer's dementia Cellulitis of right lower limb hx-2019 Dementia Diabetes IDDM, Diabetic polyneuropathy Dysthymic disorder Foot osteomyelitis, right hx Herpesviral iridocyclitis Hip fracture History of colon polyps History of COVID-19 unsure when per [facility] record HTN (hypertension) Hx of skin malignancy Hyperlipidemia Major depressive disorder Non-pressure chronic ulcer of other part of right foot with muscle involvement without evidence of necrosis penitentiary resident [facility] penitentiary Peripheral artery disease Personal history of other malignant neoplasm of skin S/P right hip fracture IM Nail Weakness Surgical History History of incision and drainage last 06/08/30 @ [facility] and 03/02/20, MAC + PNB, no complications. Hx of colonoscopy Social History Smoking Status: Former smoker Second Hand Exposure: No; Do You Dip or Chew Tobacco: No; Tobacco Cessation Education Requested by Patient: No Hx Alcohol Use: No ([facility]) Hx Substance Use: No ([facility]) Preferred Language: Bulgarian Communication Ability: Effective Wild Animal Caretaker Required: No Beliefs That Will Affect Care: None Current Living Situation: Assisted Current Living Situation Comment: Lives at [facility] Other Information That Helps Us Care for You: No Feels Safe at Home: Yes Safety Concerns: Feels Safe At This Time Assistive Devices: Walker and Wheelchair Review of Systems Review of Systems: See HPI Physical Exam Physical Exam: Constitutional: well-appearing, no acute distress, laying in bed HEENT: MMM CV: regular rhythm, no murmur appreciated Resp: CTABL, no wheezes/rales/rhonchi appreciated, no increased work of breathing GI: soft, nondistended, nontender, BS normoactive MSK: feet and lower legs dressed bilaterally, right surgical site dressing CDI, right toes with some trace blood but no ulceration or active bleeding, LE nontender bilaterally Neuro: alert, oriented, no focal neurologic deficit appreciated Results & Data Results & Data ([facility]) Vital Signs (Past 12 Hours) Vital Signs Temp Pulse Pulse Pulse Resp BP Pulse Ox 12/06/21 19:02 36.3 C L 87 16 153/77 H 97 12/06/21 18:35 36.4 C L 85 18 123/56 L 98 12/06/21 18:25 83 18 114/54 L 96 12/06/21 18:15 77 16 131/67 96 12/06/21 18:07 36.0 C L 80 16 124/63 96 12/06/21 13:45 36.5 C 94 H 16 140/86 97 Resident Activity Tracking Resident Involvement: Resident Care Provided Care Provided: Adult Hospital Medicine (1) Foot osteomyelitis, right Osteomyelitis type: unspecified type Qualified Code(s): M86.9 - Osteomyelitis, unspecified
[2021-12-06] MEDS: INSULIN ASPART PER UNIT SC SCH (21:06)
[2021-12-06] MEDS: ASPIRIN 81 MG ECTAB PO SCH (21:07)
[2021-12-06] MEDS: DOCUSATE SODIUM 100 MG CAP PO SCH ×2 (21:08)
[2021-12-06] MEDS: GABAPENTIN 100 MG CAP PO SCH (21:08)
[2021-12-06] MEDS: MIRTAZAPINE TAB 15 MG TAB PO SCH (21:11)
[2021-12-06] MEDS: SENNA 8.6 MG TAB PO SCH (21:11)
[2021-12-06] MEDS: ARTIFICIAL TEARS OP SCH (21:16)
[2021-12-06] MEDS: INSULIN DETEMIR FLEXPEN/FLEX TOUCH 100 UNITS/ML 3ML SC ONE ×2 (21:28→22:03)
[2021-12-06] MEDS: ACETAMINOPHEN 500 MG TAB PO SCH (22:04)
[2021-12-06] MEDS: ceFAZolin 2000MG 2,000 MG/15 ML SYR IV SCH (23:10)
--- NOTE | 2021-12-07 02:44 | Operative Report (OR) ---
PREOPERATIVE DIAGNOSES: 1. Right plantar calcaneal osteomyelitis. 2. Diabetic neuropathic ulcer, right plantar heel 2.0 cm x 1.0 cm x 1.0 cm. POSTOPERATIVE DIAGNOSES: 1. Right plantar calcaneal osteomyelitis. 2. Diabetic neuropathic ulcer, right plantar heel 2.0 cm x 1.0 cm x 1.0 cm. PROCEDURE: 1. Right partial calcaneal ostectomy. 2. Irrigation and debridement, diabetic neuropathic plantar heel ulcer, 2.0 x 1.0 x 1.0 cm including skin, subcutaneous tissue, fascia, and periosteum, right. SURGEON: Dayron Christian DO. FIG BAR MACHINE OPERATOR: Due to the complex nature of the procedure, the entire surgery was performed with the school health assistant of Dash Lynn PA-C and Renate Trevino PA-C. The store assistant, under direct supervision, was involved in the actual performance of all aspects of the surgical procedure includin g hemostasis, tissue retraction and incision, instrument management, patient positioning, and wound c losure. ANESTHESIA: General, regional. SPECIMENS: Calcaneal osteomyelitic bone for pathologic specimen. DRAINS: One half inch iodoform gauze, drains x 2 separate sites, plantar and heel. COMPLICATIONS: None. BLOOD LOSS: 1 mL PERTINENT HISTORY: This is an 81-year-old gentleman who has chronic osteomyelitis of the right heel for approximately 2 years. He has had conservative care initially that has been failed. An MRI, [facility] demonstrated osteomyelitis. He had primary debridement with implantation of antibiotic beads, whic h improved the ulceration somewhat; however, the patient then had a subsequent MRI within the last se veral weeks demonstrated continued osteomyelitis. The patient is scheduled for surgery as indicated. All potential risks, benefits, complications, alternatives, rehab potential for incomplete relief of symptoms, need for further surgery, DVT, PE, , persistent pain, swelling, scarring, weakness, ne urovascular injury, wound complications, need for further amputation was discussed with the patient a nd his family, they decided to proceed with procedure as indicated. DESCRIPTION OF PROCEDURE: The patient was taken to the operative suite and placed supine on the oper ating table. After review of consent and identification of proper site, the patient was anesthetized and endotracheal tube was placed. The patient was then rolled prone over bolsters. All bony promin ences were properly padded and protected and a tourniquet was applied high on the right thigh over ca st padding. Right lower extremity was then sterilely prepped and draped in usual fashion. The right lower extremity was then elevated and partially exsanguinated proximal to the calcaneus with an [facility] bandage and tourniquet inflated to 350 mmHg. Next, a midline incision was made with a 15-blade scalpel and then a small ellipse was made around th e sinus tract for the ulcer. This was deepened full thickness down to the level of periosteum and eliana ne. Next, the ellipse was then tailed off proximal and distal for a gentle curvature of the tissue f laps. Next, the ellipse of tissue was then passed off and next the skin and tissue was then elevated full thickness down to the level of bone. Hohmann retractors were placed around the calcaneal tuber osity. The region of concern based upon the MRI findings was carefully dissected free and then a sag ittal saw, with a large battery saw was then used to excise the plantar aspect of the calcaneus with a margin of approximately 9-10 mm into healthy tissue and bone according to the MRI findings. This w edge of bone was then passed off for pathological assessment for osteomyelitis. Next, a secondary cu t was made in a more vertical angle to remove the remainder of the tuberosity. The edges were feathe red and bevelled using a sagittal saw using soft tissue retractors and then a bone rasp was then used to smooth and contour the remainder of the calcaneus. Next, the pulse lavage with Ancef 3 liters wa s used to lavage the entirety of the heel and bone. Next, a 15 blade scalpel was then used to debrid e the skin and subcutaneous tissue, fascia, and periosteum of any necrotic or questionable tissue. N ext, final irrigation was performed with pulse lavage and then one half inch iodoform gauze packing, drains were placed proximal and distal poles of the incision and then a full-thickness closure was pe rformed with interrupted buried 2-0 Vicryl and 2-0 nylon sutures on the surface of the skin loosely a pproximating tissue. Next, an ankle block was then performed with 30 mL of 0.5% Marcaine plain and t hen a sterile compressive dressing consisting of Xeroform gauze, sterile 4 x 4s, cast padding, and a posterior Ortho-Glass splint was applied overwrapped in Saad wrap. The foot held in neutral dorsiflex ion. The tourniquet was released. The patient was awakened, rolled supine and taken to recovery in stable condition. Job ID: [id number]
[2021-12-07] MEDS: ACETAMINOPHEN 500 MG TAB PO SCH ×3 (06:19→22:20)
[2021-12-07] MEDS: ceFAZolin 2000MG 2,000 MG/15 ML SYR IV SCH (07:32)
[2021-12-07 07:51] LABS: Hemoglobin 12.5 g/dL (14.0-18.0); Mean Corpuscular Hemoglobin 31.5 pg (25-34); Mean Corpuscular Hgb Conc 32.1 g/dL (32-36); Mean Corpuscular Volume 98.2 fL (80-100); Mean Platelet Volume 10.2 fL (7.4-10.4); Platelet Count 204 K/uL (130-400); RDW Coefficient of Variation 13.7 % (11.5-14.5); Red Blood Count 3.97 M/uL (4.7-6.1); White Blood Count 10.78 K/uL (4.8-10.8)
[2021-12-07 08:38] LABS: BUN Creatinine Ratio 37.1 (10-20); Calcium 8.8 mg/dl (8.5-10.1); Chol HDL Ratio 5.4 (0-5); Creatinine Clr Calc Pharmacy 57.2 ml/min; Est GFR (African American) 76.8 ml/min; Est GFR (Non-African American) 66.3 ml/min; Potassium 4.8 mmol/L (3.5-5.1)
[2021-12-07] MEDS ORDERED: NON-FORMULARY MEDICATION (Vit C,E-Zn-Coppr-Lutein-Zeaxan [Preservision Areds-2] 250-90-40- PO SCH (09:00)
[2021-12-07] MEDS ORDERED: INSULIN DETEMIR FLEXPEN/FLEX TOUCH 100 UNITS/ML 3ML SC SCH (09:00)
[2021-12-07] MEDS: PANTOprazole 40 MG TAB PO SCH (09:09)
[2021-12-07] MEDS: VENLAFAXINE HCL XR 75 MG CAPXR PO SCH (09:09)
[2021-12-07] MEDS: valACYclovir HCL 500 MG TABLET PO SCH (09:10)
[2021-12-07] MEDS: MULTIVITAMIN TAB PO SCH (09:10)
[2021-12-07] MEDS: lisinopril 10 MG TAB PO SCH (09:10)
[2021-12-07] MEDS: INDAPAMIDE 1.25 MG TAB PO SCH (09:11)
[2021-12-07] MEDS: ASPIRIN 81 MG ECTAB PO SCH ×2 (09:12→21:04)
[2021-12-07] MEDS: CHOLECALCIFEROL 1,000 UNITS 25 MCG TAB PO SCH (09:12)
[2021-12-07] MEDS: DOCUSATE SODIUM 100 MG CAP PO SCH ×3 (09:12→21:04)
[2021-12-07] MEDS: ARTIFICIAL TEARS OP SCH ×4 (09:13→21:04)
[2021-12-07] MEDS: INSULIN ASPART PER UNIT SC SCH ×4 (09:29→20:56)
--- NOTE | 2021-12-07 10:20 | Orthopedic Progress Note ---
Date of Service December 07, 2021 Assessment & Plan (1) Foot osteomyelitis, right: Plan: Right partial calcaneal ostectomy. Irrigation and debridement, diabetic neuropathic plantar heel ulcer, 2.0 x 1.0 x 1.0 cm including skin, subcutaneous tissue, fascia, and periosteum, right POD#1 Continue ASA BID Dressing change tomorrow. Continue NWB right LE Admission and Anticipated Discharge Date Admission Date: December 06, 2021 Subjective Patient resting comfortably in bed. No complaints today. Minimal pain Physical Exam Physical Exam: Splint in place. Toes mobile. NVI. Calves soft Results & Data ([facility]) Vital Signs (Past 12 Hours) Vital Signs Temp Pulse Pulse Resp BP Pulse Ox 12/07/21 08:06 36.4 C L 87 16 130/68 94 12/07/21 05:03 36.4 C L 95 H 95 H 16 127/69 96 12/06/21 22:45 36.5 C 92 H 16 123/68 92 (1) Foot osteomyelitis, right Osteomyelitis type: unspecified type Qualified Code(s): M86.9 - Osteomyelitis, unspecified
--- NOTE | 2021-12-07 12:50 | Hospitalist Progress Note ---
Date of Service December 07, 2021 Assessment & Plan (1) Foot osteomyelitis, right: Plan: - S/p right ankle partial calcaneal ostectomy and irrigation/debridement of a diabetic neuropathic plantar heel ulcer on 12/06, POD#1. - Not currently receiving abx coverage. - Tylenol 1 gm q8hr ATC with Oxycodone and Dilaudid prn. - ASA 81 mg BID x 4 weeks for DVT ppx. - Colace, Senokot for constipation. (2) Ulcer of right heel: Plan: - S/p I&D on 12/06/21 as noted above. - Diabetic induced. (3) Diabetes: Plan: - Hgb A1C 7.5% on 11/04/21. - Pharmacy consulted for glycemic managenet - BG 300's in the AM and at lunch. 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 - Carb consistent, heart healthy diet. (4) Peripheral arterial disease: Plan: - Unclear why this patient does not take statin agent - appears to have been discontinued in 2019. - LDL level 107 on updated lipid panel. (5) HTN (hypertension): Plan: - Continue home Indapamide and Lisinopril. - BP has been stable over the last 24 hours. (6) Anemia: Plan: - Hgb 12.5 this morning, mild decrease due to operation. - Continue to follow CBC daily. (7) Alzheimer's dementia: Plan: - Chronic. (8) Anxiety: Plan: - Continue home Mirtazapine and Effexor. DVT ppx: ASA 81 mg BID x 4 weeks. Dispo: Will continue to follow. PT/OT ordered. FULL CODE Admission and Anticipated Discharge Date Admission Date: December 06, 2021 Supervising Physician Co-Signing Physician Notes Attending Attestation - Chart reviewed in detail, care plan d/w TERRI Dwyer. I agree w/ the nash components of her documentation. Defer DM management to pharmacy - they have been consulted for glycemic control & recs. Vin Boothe MD Subjective Mr. Odom is an 81 y/o male, s/p right partial calcaneal ostectomy and I&D of plantar heel ulcer - currently POD#1. He is doing well overall, denies severe uncontrolled pain. On ASA 81 mg BID for DVT ppx. Updated lab work is stable. BG level >200 on readings from today. Pharmacy consulted for glycemic management. Review of Systems Review of Systems: Constitutional: Negative for weight loss, night sweats, or fever Cardiovascular: Negative for anginal type chest pain, palpitations, dizziness, diaphoresis Respiratory: Negative for new shortness of breath,hemoptysis, or purulent cough Gastrointestinal: Negative for diarrhea, hematemesis, melena, nausea, vomiting, or dyspepsia Integumentary (skin): Negative for rash or jaundice discoloration Lymphatic/Hematologic: Negative for petechiae, bleeding or new adenopathy Musculoskeletal: Negative for new joint or back pain Physical Exam Physical Exam: Constitutional: Elderly male, no acute distress Respiratory: Lung sounds were generally clear bilaterally. Cardiovascular: Heart was RRR without significant murmur, gallops or rubs. Gastrointestinal: No palpable hepatic or splenomegaly. The abdomen was soft with normal bowel sounds. Lymphatic system: There was no palpable peripheral lymphadenopathy. Musculoskeletal System: The musculoskeletal system seemed concordant with age. Skin: The skin was negative for jaundice. Dressing on right foot. Results & Data Results & Data ([facility]) Vital Signs (Past 12 Hours) Vital Signs Temp Pulse Pulse Resp BP Pulse Ox 12/07/21 10:44 36.5 C 81 18 113/62 95 12/07/21 08:06 36.4 C L 87 16 130/68 94 12/07/21 05:03 36.4 C L 95 H 95 H 16 127/69 96 Laboratory Results 12/07/21 12/07/21 12/07/21 Range/Units 12:14 08:22 07:23 WBC (4.8-10.8) K/uL RBC (4.7-6.1) M/uL Hgb (14.0-18.0) g/dL Hct (42-52) % MCV (80-100) fL MCH (25-34) pg MCHC (32-36) g/dL RDW Std Deviation (36.4-46.3) fL RDW Coeff of Gladys (11.5-14.5) % Plt Count (130-400) K/uL MPV (7.4-10.4) fL Sodium 138 (136-145) mmol/L Potassium 4.8 (3.5-5.1) mmol/L Chloride 105 (98-107) mmol/L Carbon Dioxide 23 (21-32) mmol/L Anion Gap 10 (3-11) BUN 39 H (6-23) mg/dl Creatinine 1.05 (0.6-1.4) mg/dl Est Cr Clr Drug Dosing 57.2 ml/min Est GFR ( Amer) 76.8 ml/min Est GFR (Non-Af Amer) 66.3 ml/min BUN/Creatinine Ratio 37.1 H (10-20) Glucose 284 H (70-99(Fasting)) mg/dl POC Glucose 246 H 285 H (70-99) mg/dl Calcium 8.8 (8.5-10.1) mg/dl Triglycerides 209 H (0-150) mg/dl Cholesterol 183 (0-200) mg/dl LDL Cholesterol, Calc 107 mg/dl VLDL Cholesterol, Calc 42 H (0-30) mg/dl HDL Cholesterol 34 mg/dl Cholesterol/HDL Ratio 5.4 H (0-5) SARS-CoV-2, RNA, NAAT (NEGATIVE) 12/07/21 12/06/21 12/06/21 Range/Units 07:23 Unknown 20:57 WBC 10.78 (4.8-10.8) K/uL RBC 3.97 L (4.7-6.1) M/uL Hgb 12.5 L (14.0-18.0) g/dL Hct 39.0 L (42-52) % MCV 98.2 (80-100) fL MCH 31.5 (25-34) pg MCHC 32.1 (32-36) g/dL RDW Std Deviation 49.0 H (36.4-46.3) fL RDW Coeff of Gladys 13.7 (11.5-14.5) % Plt Count 204 (130-400) K/uL MPV 10.2 (7.4-10.4) fL Sodium (136-145) mmol/L Potassium (3.5-5.1) mmol/L Chloride (98-107) mmol/L Carbon Dioxide (21-32) mmol/L Anion Gap (3-11) BUN (6-23) mg/dl Creatinine (0.6-1.4) mg/dl Est Cr Clr Drug Dosing ml/min Est GFR ( Amer) ml/min Est GFR (Non-Af Amer) ml/min BUN/Creatinine Ratio (10-20) Glucose (70-99(Fasting)) mg/dl POC Glucose 198 H (70-99) mg/dl Calcium (8.5-10.1) mg/dl Triglycerides (0-150) mg/dl Cholesterol (0-200) mg/dl LDL Cholesterol, Calc mg/dl VLDL Cholesterol, Calc (0-30) mg/dl HDL Cholesterol mg/dl Cholesterol/HDL Ratio (0-5) SARS-CoV-2, RNA, NAAT NEGATIVE (NEGATIVE) 12/06/21 12/06/21 Range/Units 18:11 13:38 WBC (4.8-10.8) K/uL RBC (4.7-6.1) M/uL Hgb (14.0-18.0) g/dL Hct (42-52) % MCV (80-100) fL MCH (25-34) pg MCHC (32-36) g/dL RDW Std Deviation (36.4-46.3) fL RDW Coeff of Gladys (11.5-14.5) % Plt Count (130-400) K/uL MPV (7.4-10.4) fL Sodium (136-145) mmol/L Potassium (3.5-5.1) mmol/L Chloride (98-107) mmol/L Carbon Dioxide (21-32) mmol/L Anion Gap (3-11) BUN (6-23) mg/dl Creatinine (0.6-1.4) mg/dl Est Cr Clr Drug Dosing ml/min Est GFR ( Amer) ml/min Est GFR (Non-Af Amer) ml/min BUN/Creatinine Ratio (10-20) Glucose (70-99(Fasting)) mg/dl POC Glucose 158 H 166 H (70-99) mg/dl Calcium (8.5-10.1) mg/dl Triglycerides (0-150) mg/dl Cholesterol (0-200) mg/dl LDL Cholesterol, Calc mg/dl VLDL Cholesterol, Calc (0-30) mg/dl HDL Cholesterol mg/dl Cholesterol/HDL Ratio (0-5) SARS-CoV-2, RNA, NAAT (NEGATIVE) PG Care Time/CCT Total # of Minutes Spent Total Time Spent with Patient: Total time spent is greater than 50% in coordination of care (as documented) at patient's floor/unit and/or counseling patient: [place] [address] Subseq Hosp Care Lvl 2 Patient Type Established Diagnoses Alzheimer's dementia G30.9; F02.80 Diabetes E11.9 Ulcer of right heel L97.419 Peripheral arterial disease I73.9 HTN (hypertension) I10 Foot osteomyelitis, right M86.9 Osteomyelitis type: unspecified type Anxiety F41.9 Anemia D64.9 (1) Foot osteomyelitis, right Osteomyelitis type: unspecified type Qualified Code(s): M86.9 - Osteomyelitis, unspecified
--- NOTE | 2021-12-07 13:35 | Pharmacy Report ---
Pharmacy Glycemic Short Note 2 - Date of Service December 07, 2021 - Glycemic Short BSG Results (Last 24 hours): 12/06/21 12/06/21 12/06/21 13:38 18:11 20:57 Glucose POC Glucose 166 H 158 H 198 H 12/07/21 12/07/21 12/07/21 07:23 08:22 12:14 Glucose 284 H POC Glucose 285 H 246 H OUTPATIENT ANTIDIABETIC REGIMEN: * Levemir 40 units SQ BID * Novolog 10 units SQ TID with meals, plus sliding scale * HbA1c: 7.5% (11/04/21) ASSESSMENT: * Mr Odom is an 81yo diabetic M POD #1 s/p ostectomy yesterday with Dr. Christian. * It appears that pt received 4mg IV dexamethasone intra-operatively yesterday, however, documentation is unclear. * Pt received only 20 units of Levemir last evening, so BSGs have been high today d/t basal insulin deficit and possibly steroid-induced hyperglycemia. * Lemevir increased to home dose this morning and Novolog parameters tightened to better reflect patient's outpt insulin use. * Pharmacy will continue to follow and adjust regimen as indicated. PLAN FOR INPATIENT GLYCEMIC CONTROL: * Hold outpatient oral diabetes medications * Basal insulin * Levemir 40 units SQ BID * Bolus insulin * NovoLog per scale ACHS or Q6hrs while NPO * Goal Range: Low 120 mg/dL - High 150 mg/dL * Correction Factor: 15 mg/dL/unit * Nutritional / Prandial insulin per carb ratio of 1 unit per 5 grams CHO consumed
[2021-12-07] MEDS: CARBOHYDRATES FOR HYPOGLYCEMIA PO PRN ×2 (20:49→21:18)
[2021-12-07] MEDS: SENNA 8.6 MG TAB PO SCH (21:04)
[2021-12-07] MEDS: GABAPENTIN 100 MG CAP PO SCH (21:04)
[2021-12-07] MEDS: MIRTAZAPINE TAB 15 MG TAB PO SCH (21:04)
--- NOTE | 2021-12-08 04:56 | Billing Data ---
Date of Service December 08, 2021 Coding Level of Care Code 32426 Inpt Consult Level 3
[2021-12-08] MEDS: ACETAMINOPHEN 500 MG TAB PO SCH ×3 (06:00→22:37)
[2021-12-08] MEDS: DOCUSATE SODIUM 100 MG CAP PO SCH ×2 (07:44→21:55)
[2021-12-08] MEDS: ASPIRIN 81 MG ECTAB PO SCH ×2 (07:45→21:55)
[2021-12-08] MEDS: PANTOprazole 40 MG TAB PO SCH (07:45)
[2021-12-08] MEDS: lisinopril 10 MG TAB PO SCH (07:45)
[2021-12-08] MEDS: CHOLECALCIFEROL 1,000 UNITS 25 MCG TAB PO SCH (07:45)
[2021-12-08] MEDS: VENLAFAXINE HCL XR 75 MG CAPXR PO SCH (07:45)
[2021-12-08] MEDS: INDAPAMIDE 1.25 MG TAB PO SCH (07:45)
[2021-12-08] MEDS: valACYclovir HCL 500 MG TABLET PO SCH (07:45)
[2021-12-08] MEDS: MULTIVITAMIN TAB PO SCH (07:46)
[2021-12-08] MEDS: ARTIFICIAL TEARS OP SCH ×4 (07:46→21:55)
[2021-12-08 08:50] LABS: Hematocrit (blood only) 35.9 % (42-52); Hemoglobin 11.2 g/dL (14.0-18.0); Mean Corpuscular Hemoglobin 30.8 pg (25-34); Mean Corpuscular Hgb Conc 31.2 g/dL (32-36); Mean Corpuscular Volume 98.6 fL (80-100); Platelet Count 187 K/uL (130-400); Red Blood Count 3.64 M/uL (4.7-6.1); White Blood Count 7.94 K/uL (4.8-10.8)
[2021-12-08 09:04] LABS: BUN Creatinine Ratio 33.3 (10-20); Calcium 8.8 mg/dl (8.5-10.1); Creatinine Clr Calc Pharmacy 74.1 ml/min; Est GFR (African American) 96.6 ml/min; Est GFR (Non-African American) 83.4 ml/min; Potassium 4.1 mmol/L (3.5-5.1)
[2021-12-08 09:19] LABS: Basophils # (auto) 0.02 K/uL (0-0.2); Basophils % (auto) 0.2 %; Eosinophils # (auto) 0.25 K/uL (0-0.5); Eosinophils % (auto) 3.1 %; Hematocrit (blood only) 36.3 % (42-52); Hemoglobin 11.5 g/dL (14.0-18.0); Immature Granulocytes # (auto) 0.01 K/uL (0.00-0.02); Immature Granulocytes % (auto) 0.1 %; Lymphocytes # (auto) 0.57 K/uL (1.2-3.4); Mean Corpuscular Hemoglobin 31.3 pg (25-34); Mean Corpuscular Hgb Conc 31.7 g/dL (32-36); Mean Corpuscular Volume 98.6 fL (80-100); Mean Platelet Volume 9.5 fL (7.4-10.4); Monocytes # (auto) 1.14 K/uL (0.11-0.59); Neutrophils # (auto) 6.15 K/uL (1.4-6.5); Neutrophils % (auto) 75.6 %; Platelet Count 178 K/uL (130-400); RDW Coefficient of Variation 13.7 % (11.5-14.5); RDW Standard Deviation 49.3 fL (36.4-46.3); Red Blood Count 3.68 M/uL (4.7-6.1); White Blood Count 8.14 K/uL (4.8-10.8)
[2021-12-08] MEDS ORDERED: DAPTOmycin 450 MG in SYRINGE 0 ML IV SCH (09:30)
--- NOTE | 2021-12-08 09:33 | Pharmacy Report ---
Pharmacy Glycemic Short Note 2 - Date of Service December 08, 2021 - Glycemic Short BSG Results (Last 24 hours): 12/07/21 12/07/21 12/07/21 12:14 17:24 20:43 Glucose POC Glucose 246 H 75 68 L* 12/07/21 12/07/21 12/07/21 20:45 21:08 21:10 Glucose POC Glucose 68 L* 61 L* 69 L* 12/07/21 12/08/21 12/08/21 21:34 07:56 08:12 Glucose 137 H POC Glucose 89 153 H OUTPATIENT ANTIDIABETIC REGIMEN: * Levemir 40 units SQ BID * Novolog 10 units SQ TID with meals, plus sliding scale * HbA1c: 7.5% (11/04/21) ASSESSMENT: 12/08/21: * Despite hyperglycemia yesterday morning (285, 246 mg/dL), patient's BSGs dropped significantly in the evening (75, 68 mg/dL). Suspect that this may be due to patient's minimal PO intake. * Levemir dose reduced today to give half of home dose. * Novolog parameters were loosened last evening. * Anticipate that pt may require additional insulin as diet improves. Will continue to follow and adjust as indicated. 12/07 * Mr Odom is an 81yo diabetic M POD #1 s/p ostectomy yesterday with Dr. Christian. * It appears that pt received 4mg IV dexamethasone intra-operatively yesterday, however, documentation is unclear. * Pt received only 20 units of Levemir last evening, so BSGs have been high today d/t basal insulin deficit and possibly steroid-induced hyperglycemia. * Lemevir increased to home dose this morning and Novolog parameters tightened to better reflect patient's outpt insulin use. * Pharmacy will continue to follow and adjust regimen as indicated. PLAN FOR INPATIENT GLYCEMIC CONTROL: * Hold outpatient oral diabetes medications * Basal insulin * Levemir 20 units SQ BID * Bolus insulin * NovoLog per scale ACHS or Q6hrs while NPO * Goal Range: Low 120 mg/dL - High 150 mg/dL * Correction Factor: 20 mg/dL/unit * Nutritional / Prandial insulin per carb ratio of 1 unit per 7 grams CHO consumed
[2021-12-08 09:36] LABS: BUN Creatinine Ratio 33.8 (10-20); C Reactive Protein 11.09 mg/dl (0-0.5); Calcium 8.7 mg/dl (8.5-10.1); Est GFR (African American) 97.1 ml/min; Est GFR (Non-African American) 83.8 ml/min; Potassium 4.1 mmol/L (3.5-5.1)
[2021-12-08] MEDS: INSULIN ASPART PER UNIT SC SCH ×4 (09:36→21:55)
[2021-12-08] MEDS: INSULIN DETEMIR FLEXPEN/FLEX TOUCH 100 UNITS/ML 3ML SC SCH ×2 (09:37→21:55)
--- NOTE | 2021-12-08 10:58 | Orthopedic Progress Note ---
Date of Service December 08, 2021 Assessment & Plan (1) Foot osteomyelitis, right: Plan: Right partial calcaneal ostectomy. Irrigation and debridement, diabetic neuropathic plantar heel ulcer, 2.0 x 1.0 x 1.0 cm including skin, subcutaneous tissue, fascia, and periosteum, right POD#1 Continue ASA BID Dressing change today and 1/2 packing pulled Continue NWB right LE Admission and Anticipated Discharge Date Admission Date: December 06, 2021 Subjective patient resting comfortably in bed. No complaints today. No chest pain, sob. Physical Exam Physical Exam: Dressing changed and 1/2 packing pulled today. incision drainging. Toes mobile. NVI. Calves soft Results & Data ([facility]) Vital Signs (Past 12 Hours) Vital Signs Temp Pulse Resp BP Pulse Ox 12/08/21 07:06 36.6 C 82 16 119/65 95 (1) Foot osteomyelitis, right Osteomyelitis type: unspecified type Qualified Code(s): M86.9 - Osteomyelitis, unspecified
--- NOTE | 2021-12-08 14:15 | Hospitalist Progress Note ---
Date of Service December 08, 2021 Assessment & Plan (1) Acute osteomyelitis of right calcaneus: Plan: Acute right calcaneus osteomyelitis s/p partial calcaneal ostectomy and irrigation/debridement (12/06) Had been ordered perioperative antibiotics (Ancef) which have since been discontinued Pain control ordered with APAP, OxyIR, and Dilaudid Pt currently completely pain free, will d/c OxyIR and Dilaudid to not cause toxic encephalopathy Continue APAP prn pain as ordered Continue ASA 81mg bid ordered for DVT ppx--14 days would be sufficient but ultimately duration at ortho's discretion Review of patient's chart demonstrates culture data on 11/12/21 with growth of corynebacterium and anaerococcus species Literature advises treatment for corynebacterium with Erythromycin or procaine PCN G; however, in cases of antibiotic resistance, Zyvox/Vanco/Dapto can be used Unfortunately, without sensitivities provided on the culture from 11/12 and given presence of bone infection with unknown if ALL infected bone was removed, would err on the side of caution and treat more aggressively using Daptomycin or Vancomycin (as dapto would be not be covered by SNF) for total of 6 weeks. ESR and CRP ordered and were both elevated at 54 and 11.09 respectively Pt would need PICC line insertion in order to administer IV abx for 6 weeks Would also advise ID consult to ensure they agree with course and choice of abx therapy and to also f/u with pt upon d/c Daptomycin ordered and pt received a dose today I reached out to pt's family and spoke with both of his daughters, Jo-Ann and Nessa (both are POAs). They explained that their father has advanced dementia, living in SNF, with poor quality of life. Have been stating more that he wants to "be with his " who is x 4 years. Both daughters note that he has had multiple I&D procedures related to persistent infection, has had several courses of parenteral antibiotics, and has also seen ID. Despite that, pt continues to have issues with ongoing infection. At this point, neither of them wish to pursue ongoing aggressive treatment. They DO NOT want to have a PICC line placed and DO NOT want him on course of IV antibiotic therapy. Continue local wound care to area per ortho, specific instructions should be provided to SNF at discharge NWB to RLE (2) Ulcer of right heel: Plan: As above (3) Alzheimer's dementia: Plan: Advanced, on no specific medications for this Takes Mirtazapine and Venlafaxine for anxiety which has been continued (4) Diabetes: Plan: HbA1c 7.5% (11/04/21) Will hold patient's home basal insulin and place on ISS for tight BSG control (goal 120-150) postoperatively Continue BSG checks, hypoglycemic protocol Continue gabapentin for neuropathic pain (5) Peripheral arterial disease: Plan: Continue ASA Not currently on statin therapy, d/c'd in 2019 (6) HTN (hypertension): Plan: BP well controlled at present Continue home indapamide, lisinopril Plan: After the lengthy discussion that I had with this patient's family regarding the long-term plan, I did offer a referral to hospice and asked if they would be interested in that. Pt has been a DNR/DNI for years, per daughters. They are both interested in hospice referral. I have answered all questions and reached out to case management about this. They will contact [facility] to determine if the facility utilizes a specific agency for hospice and then follow up with the family. At this point, I will d/c the IV Daptomycin. I also d/c'd the ID consult and PICC line order. I changed the code status of the patient in the computer. PT/OT has not been consulted; however, with returning to SNF w/ hospice, this will not need to be ordered. Per family, he is mostly wheelchair bound. I have no further recommendations for this patient at this time. Thank you for allowing us to participate in the care of this patient, will sign off but continue to follow peripherally. Please feel free to reach out if we can be of anymore a ssistance. Above d/w Dr. Land. Admission and Anticipated Discharge Date Admission Date: December 06, 2021 Subjective patient resting comfortably in bed. No complaints today. No chest pain, sob. Results & Data Results & Data ([facility]) Vital Signs (Past 12 Hours) Vital Signs Temp Pulse Resp BP Pulse Ox 12/08/21 07:06 36.6 C 82 16 119/65 95 Laboratory Results 12/08/21 09:09 12/08/21 09:09 Spec: [id number] Collected: 11/12/21115 Received: 11/12/[address]: Dayron Christian D.O. Source: Foot,Right OV Order: Ordered: Aer/Sonal Cult/Sm Comments: RIGTH HEEL ULCER Procedure Result Verified Site Gram Stain Final 11/12/21 Gram Stain Result No WBCs Seen Moderate Gram Positive Bacilli Light Gram Positive Cocci Aero/Sonal Cult Final 11/17/21-141 Organism 1 Corynebacterium species Quantity Many Sens No Sensitivities to Follow +MixWound Plus Low Counts of Probable Skin Amanda Organism 2 ANAEROCOCCUS SPECIES Quantity Moderate Sens No Sensitivities to Follow PG Care Time/CCT Total # of Minutes Spent Total Time Spent with Patient: Total time spent is greater than 50% in coordination of care (as documented) at patient's floor/unit and/or counseling patient: Coding Level of Care Code 35455 Subseq Hosp Care Lvl 3 Diagnoses Alzheimer's dementia G30.9; F02.80 Diabetes E11.9 Ulcer of right heel L97.419 Peripheral arterial disease I73.9 HTN (hypertension) I10 Acute osteomyelitis of right calcaneus M86.171
[2021-12-08] MEDS: GABAPENTIN 100 MG CAP PO SCH (21:55)
[2021-12-08] MEDS: MIRTAZAPINE TAB 15 MG TAB PO SCH (21:55)
[2021-12-08] MEDS: SENNA 8.6 MG TAB PO SCH (21:55)
[2021-12-09] MEDS: ACETAMINOPHEN 500 MG TAB PO SCH ×3 (06:13→21:14)
[2021-12-09 06:26] LABS: Hematocrit (blood only) 36.7 % (42-52); Hemoglobin 11.8 g/dL (14.0-18.0); Mean Corpuscular Hemoglobin 30.8 pg (25-34); Mean Corpuscular Hgb Conc 32.2 g/dL (32-36); Mean Corpuscular Volume 95.8 fL (80-100); Mean Platelet Volume 9.9 fL (7.4-10.4); Platelet Count 211 K/uL (130-400); RDW Coefficient of Variation 13.9 % (11.5-14.5); RDW Standard Deviation 48.6 fL (36.4-46.3); Red Blood Count 3.83 M/uL (4.7-6.1); White Blood Count 8.95 K/uL (4.8-10.8)
[2021-12-09 06:40] LABS: BUN Creatinine Ratio 25.8 (10-20); Calcium 8.9 mg/dl (8.5-10.1); Creatinine Clr Calc Pharmacy 67.5 ml/min; Est GFR (African American) 92.9 ml/min; Est GFR (Non-African American) 80.2 ml/min; Potassium 3.8 mmol/L (3.5-5.1)
[2021-12-09] MEDS: DOCUSATE SODIUM 100 MG CAP PO SCH ×2 (08:45→20:15)
[2021-12-09] MEDS: lisinopril 10 MG TAB PO SCH (08:46)
[2021-12-09] MEDS: VENLAFAXINE HCL XR 75 MG CAPXR PO SCH (08:46)
[2021-12-09] MEDS: valACYclovir HCL 500 MG TABLET PO SCH (08:46)
[2021-12-09] MEDS: INDAPAMIDE 1.25 MG TAB PO SCH (08:46)
[2021-12-09] MEDS: PANTOprazole 40 MG TAB PO SCH (08:47)
[2021-12-09] MEDS: MULTIVITAMIN TAB PO SCH (08:47)
[2021-12-09] MEDS: CHOLECALCIFEROL 1,000 UNITS 25 MCG TAB PO SCH (08:47)
[2021-12-09] MEDS: ASPIRIN 81 MG ECTAB PO SCH ×2 (08:48→20:14)
[2021-12-09] MEDS: ARTIFICIAL TEARS OP SCH ×4 (08:48→20:14)
[2021-12-09] MEDS: INSULIN ASPART PER UNIT SC SCH ×4 (08:55→21:18)
[2021-12-09] MEDS ORDERED: INSULIN DETEMIR FLEXPEN/FLEX TOUCH 100 UNITS/ML 3ML SC SCH (09:00)
[2021-12-09] MEDS ORDERED: INSULIN DETEMIR FLEXPEN/FLEX TOUCH 100 UNITS/ML 3ML SC ONE (12:15)
--- NOTE | 2021-12-09 14:29 | Pharmacy Report ---
Pharmacy Glycemic Short Note 2 - Date of Service December 09, 2021 - Glycemic Short BSG Results (Last 24 hours): 12/08/21 12/08/21 12/09/21 17:12 20:47 05:58 Glucose 112 H POC Glucose 88 117 H 12/09/21 12/09/21 12/09/21 08:56 12:00 12:02 Glucose POC Glucose 151 H 325 H* 315 H* OUTPATIENT ANTIDIABETIC REGIMEN: * Levemir 40 units SQ BID * Novolog 10 units SQ TID with meals, plus sliding scale * HbA1c: 7.5% (11/04/21) ASSESSMENT: 12/09/21: * BSGs yesterday, 153, 181, 88, and 117 mg/dL * Received 50 units of insulin, 40 units of basal and 10 units of bolus * Fasting BSG (based on AM labs) of 112 mg/dL, AM POC of 151 mg/dL was after patient had started breakfast * Unclear reason for elevated BSG with lunch (315 mg/dL), will trend BSGs today and consider tightening Novolog with breakfast tomorrow * Given downward BSG trend on prior days, will loosen Novolog with lunch, dinner, and HS 12/08/21: * Despite hyperglycemia yesterday morning (285, 246 mg/dL), patient's BSGs dropped significantly in the evening (75, 68 mg/dL). Suspect that this may be due to patient's minimal PO intake. * Levemir dose reduced today to give half of home dose. * Novolog parameters were loosened last evening. * Anticipate that pt may require additional insulin as diet improves. Will continue to follow and adjust as indicated. 12/07 * Mr Odom is an 81yo diabetic M POD #1 s/p ostectomy yesterday with Dr. Christian. * It appears that pt received 4mg IV dexamethasone intra-operatively yesterday, however, documentation is unclear. * Pt received only 20 units of Levemir last evening, so BSGs have been high today d/t basal insulin deficit and possibly steroid-induced hyperglycemia. * Lemevir increased to home dose this morning and Novolog parameters tightened to better reflect patient's outpt insulin use. * Pharmacy will continue to follow and adjust regimen as indicated. PLAN FOR INPATIENT GLYCEMIC CONTROL: * Hold outpatient oral diabetes medications * Basal insulin * Levemir 15-20 units SC BID * Bolus insulin * NovoLog per scale ACHS or Q6hrs while NPO * Goal Range: Low 120 mg/dL - High 150 mg/dL * Correction Factor: 25 mg/dL/unit * Nutritional / Prandial insulin per carb ratio of 1 unit per 9 grams CHO consumed
--- NOTE | 2021-12-09 18:50 | Orthopedic Progress Note ---
Date of Service December 09, 2021 Assessment & Plan (1) Foot osteomyelitis, right: Plan: POD #3 s/p 1. Right partial calcaneal ostectomy. 2. Irrigation and debridement, diabetic neuropathic plantar heel ulcer, 2.0 x 1.0 x 1.0 cm including skin, subcutaneous tissue, fascia, and periosteum, right. Dressing changed today. All packing removed distally and proximally. Continue nonweightbearing status on the right lower extremity. The hospitalist has talked with the patient's family and they wish to avoid IV antibiotics. He will be sent home on oral Cipro and Flagyl. Discharge planningwhen he is set up for his hospice care or back to his previous nursing facility, he will be discharged at that time. (2) Pressure ulcer of right heel: Admission and Anticipated Discharge Date Admission Date: December 06, 2021 Subjective No complaints of the right foot today. Patient's mental status appears stable. Physical Exam Constitutional: well developed and well nourished; no acute distress ENMT: external ear and nose normal, oropharynx normal Neck: trachea midline Respiratory: normal respiratory effort, lungs clear to auscultation Cardiovascular: Rate/Rhythm: regular rate and regular rhythm Gastrointestinal (Abdomen): normal bowel sounds, soft, nontender, no hepatosplenomegaly Musculoskeletal: Ankle: + surgical incision (Right foot: Well approximated incision from the plantar aspect of the heel) and + surgical drain present (Distal and proximal gauze packing removed today); no skin erythema and no ecchymosis Skin: + ulcer (Plantar right heel with macerated wound edges) Neurologic: + abnormal touch/pain/proprioception Psychiatric: Orientation: alert Speech: normal rate/rhythm/volume of speech Lymphatic: no cervical or axillary lymphadenopathy Results & Data ([facility]) Vital Signs (Past 12 Hours) Vital Signs Temp Pulse Resp BP Pulse Ox 12/09/21 15:28 36.7 C 80 20 123/63 96 12/09/21 07:31 36.5 C 80 16 112/62 96 (1) Foot osteomyelitis, right Osteomyelitis type: unspecified type Qualified Code(s): M86.9 - Osteomyeliti s, unspecified (2) Pressure ulcer of right heel Pressure injury stage: unspecified pressure injury stage Qualified Code(s): L89.619 - Pressure ulcer of right heel, unspecified stage
[2021-12-09] MEDS: GABAPENTIN 100 MG CAP PO SCH (20:15)
[2021-12-09] MEDS: MIRTAZAPINE TAB 15 MG TAB PO SCH (20:17)
[2021-12-09] MEDS: SENNA 8.6 MG TAB PO SCH (20:17)
[2021-12-09] MEDS: INSULIN DETEMIR FLEXPEN/FLEX TOUCH 100 UNITS/ML 3ML SC SCH (21:15)
[2021-12-10] MEDS: ACETAMINOPHEN 500 MG TAB PO SCH ×2 (06:05→13:19)
[2021-12-10] MEDS: DOCUSATE SODIUM 100 MG CAP PO SCH (09:11)
[2021-12-10] MEDS: valACYclovir HCL 500 MG TABLET PO SCH (09:11)
[2021-12-10] MEDS: VENLAFAXINE HCL XR 75 MG CAPXR PO SCH (09:11)
[2021-12-10] MEDS: PANTOprazole 40 MG TAB PO SCH (09:11)
[2021-12-10] MEDS: CHOLECALCIFEROL 1,000 UNITS 25 MCG TAB PO SCH (09:11)
[2021-12-10] MEDS: ASPIRIN 81 MG ECTAB PO SCH (09:11)
[2021-12-10] MEDS: INDAPAMIDE 1.25 MG TAB PO SCH (09:12)
[2021-12-10] MEDS: INSULIN DETEMIR FLEXPEN/FLEX TOUCH 100 UNITS/ML 3ML SC SCH (09:12)
[2021-12-10] MEDS: lisinopril 10 MG TAB PO SCH (09:12)
[2021-12-10] MEDS: MULTIVITAMIN TAB PO SCH (09:12)
[2021-12-10] MEDS: ARTIFICIAL TEARS OP SCH ×2 (09:13→13:19)
[2021-12-10] MEDS: INSULIN ASPART PER UNIT SC SCH ×2 (09:20→13:19)
[2021-12-10] MEDS ORDERED: CIPROFLOXACIN 500 MG TAB PO STA (14:02)
[2021-12-10] MEDS ORDERED: metroNIDAZOLE 500 MG TAB PO STA (14:02)
--- NOTE | 2021-12-10 14:24 | Orthopedic Progress Note ---
Date of Service December 10, 2021 Assessment & Plan (1) Foot osteomyelitis, right: Plan: POD #4 s/p 1. Right partial calcaneal ostectomy. 2. Irrigation and debridement, diabetic neuropathic plantar heel ulcer, 2.0 x 1.0 x 1.0 cm including skin, subcutaneous tissue, fascia, and periosteum, right. Dressing changed today. Continue nonweightbearing status on the right lower extremity. The hospitalist has talked with the patient's family and they wish to avoid IV antibiotics. They are also looking to hospice care at [facility]. He will be discharged on oral Cipro and Flagyl. First dose given today. [facility]charge [facility] Follow-up with Dr. Christian in 10 to 14 days. (2) Pressure ulcer of right heel: Admission and Anticipated Discharge Date Admission Date: December 06, 2021 Subjective Postop day 4 Patient sitting in his chair at the bedside. No complaints today. States he has not been having any pain at all. Feels well. Physical Exam Physical Exam: Dressing changed. Mild bloody drainage noted on dressing. No purulence. Some slight maceration noted. No foul odor. Wound redressed. Results & Data ([facility]) Vital Signs (Past 12 Hours) Vital Signs Temp Pulse Resp BP Pulse Ox 12/10/21 13:26 36.7 C 76 16 106/54 L 96 12/10/21 08:24 36.7 C 76 16 106/54 L 96 (1) Foot osteomyelitis, right Osteomyelitis type: unspecified type Qualified Code(s): M86.9 - Osteomyelitis, unspecified (2) Pressure ulcer of right heel Pressure injury stage: unspecified pressure injury stage Qualified Code(s): L89.619 - Pressure ulcer of right heel, unspecified stage
[2021-12-10] MEDS ORDERED: CIPROFLOXACIN 500 MG TAB PO SCH (21:00)
[2021-12-10] MEDS ORDERED: metroNIDAZOLE 500 MG TAB PO SCH (21:00)
--- NOTE | 2021-12-18 11:01 | Discharge Summary ---
Date of Service December 18, 2021 Admission HPI Per Admitting Provider This is a patient who has been treated for a long time for a right foot chronic plantar heel ulceration. The ulceration is failed to heal despite multiple surgical procedures. Recent imaging noted osteomyelitis at the calcaneus. He is now being set up for surgical management of the ulceration and excision of the infected portion of the calcaneus bone. Admission Exam Per Admitting Provider Physical Exam Constitutional: well developed and well nourished; no acute distress ENMT: external ear and nose normal, oropharynx normal Neck: trachea midline Respiratory: normal respiratory effort, lungs clear to auscultation Cardiovascular: Rate/Rhythm: regular rate and regular rhythm Gastrointestinal (Abdomen): normal bowel sounds, soft, nontender, no hepatosplenomegaly Musculoskeletal: Ankle: + ankle abnormal to inspection (Plantar right heel ulcer); no skin erythema and no ecchymosis Skin: + ulcer (Plantar right heel with macerat ed wound edges) Neurologic: + abnormal touch/pain/proprioception Psychiatric:L Orientation: alert Speech: normal rate/rhythm/volume of speech Lymphatic: no cervical or axillary lymphadenopathy Principal Diagnosis Osteomyelitis right calcaneus; neuropathic ulcer Discharge Data Allergies Allergy/AdvReac Type Severity Reaction Status Date / Time No Known Allergies Allergy Verified 12/04/21 15:23 Consultations 12/06/21 19:01 Consult Hospitalist Routine Procedures Performed Operation Date: 12/06/21 15:25 Actual Procedures p Right Ankle Partial Calcaneal Ostectomy(Right) - Dayron De Los Santos DO s Debridement Calcaneal Ulcer(Right) - Dayron De Los Santos DO Ordered Studies 12/05/21 10:30 US - OR guided needle placemen Stat 12/06/21 05:00 US - OR guided needle placemen Stat Hospital Course (1) Foot osteomyelitis, right: Patient was admitted on the above-noted date and had the above-noted surgery performed which started well. Postoperatively he was started on IV antibiotics [facility]. Patient was seen over the next several days and cultures were followed. Dressing change was done on postoperative day 2 and half of his iodoform packing had been removed. Cultures were showing corynebacterium species and Anerococcus species. Initial plans were for PICC line insertion and IV antibiotics. This was discussed with the family. With the patient's medical state, they were seeking to avoid IV antibiotics. Antibiotic regimen of Cipro and Flagyl were recommended per medicine service. All of the packing had been removed from his wounds and the wounds were appearing benign. Medicine service had signed off secondary to the patient remaining medically stable. 5 12/10/2021, he continued to remain medically stable and orthopedically stable and was transferred [facility]. Total Time Total Time Spent Total Time Spent (In Minutes): 10 Discharge Plan Discharge Items Patient Disposition: Transfer Half-Way Fac Reason For Visit: Right Ankle Ulcer Discharge Diagnosis: Neuropathic ulcer right heel Activity: Per Instructions section Weightbearing: Right non-weightbearing Weightbearing Comment: Nonweightbearing on the right lower extremity at all times. Non-emergency contact: Surgeon Call non-emergency contact if: your pain is not controlled, your temperature is above 101.5, your wound has increased redness and your wound has increased drainage Follow-up/Referrals: Dayron De Los Santos DO [Surgeon] - (FOLLOW UP WITH DR DE LOS SANTOS IN 2 WEEKS) [place] [Primary Care Provider] - Diet: Carb Consistent or DM2 Addtl Attending Provider Instructions: ACTIVITY RECOMMENDATIONS: Limitations: No weight bearing to affected limb at all times. SPECIAL CARE INSTRUCTIONS: * Some drainage onto the dressing is normal and is no cause for alarm. * Some swelling is natural especially after walking. * When resting, keep your foot elevated above the level of your heart. * Call [facility] if you notice: -Increased drainage -Fever over 101 degrees F -Severe constant pain BANDAGE: * DAILY DRESSING CHANGES TO RIGHT HEEL. * Keep bandage/cast dry at all times. FOLLOW UP VISIT WITH DR. DE LOS SANTOS If appointment is not already scheduled: Please call [facility] after you get home today to schedule a follow-up appointment for [address] De Los Santos at . Stand-Alone Forms: My [facility] Skilled Items Patient informed of condition?: Yes DNR: Yes Discharge Level of Care: Skilled Communicable Disease: Yes Discharge Prognosis: Stable Lines: None Urinary Catheter: Yes Medications and DC Order Prescriptions: New aspirin 81 mg Tablet,Delayed Release (Dr/Ec) 81 mg PO BID 30 Days Qty: 60 RF: 0 acetaminophen [Tylenol Extra Strength] 500 mg Tablet 1,000 mg PO Q8 14 Days Qty: 84 RF: 0 ciprofloxacin HCl [Cipro] 500 mg tablet 500 mg PO BID 28 Days Qty: 56 RF: 0 metronidazole 500 mg tablet 500 mg PO TID 28 Days Qty: 84 RF: 0 Continued polyethylene glycol 3350 [Miralax] 17 gram/dose Powder 17 g PO DAILY PRN (Reason: Constipation) Qty: 255 RF: 0 venlafaxine 75 mg capsule,extended release 24hr 75 mg PO QAM RF: 0 indapamide 2.5 mg Tablet 2.5 mg PO QAM RF: 0 valacyclovir 1 gram Tablet 1,000 mg PO QAM RF: 0 magnesium hydroxide [Milk of Magnesia] 400 mg/5 mL Suspension 30 ml PO DIRECTED PRN (Reason: Constipation) RF: 0 insulin aspart U-100 [Novolog U-100 Insulin aspart] 100 unit/mL solution 10 unit subcut TID RF: 0 bisacodyl [Dulcolax (bisacodyl)] 10 mg Suppository 10 mg MN DIRECTED PRN (Reason: Constipation) RF: 0 lisinopril 10 mg tablet 10 mg PO QAM RF: 0 Fleet Enema 19-7 gram/118 mL Enema 118 ml MN DIRECTED PRN (Reason: Constipation) RF: 0 docusate sodium 100 mg Capsule 100 mg PO QPM RF: 0 mirtazapine 15 mg tablet 7.5 mg PO HS RF: 0 gabapentin 100 mg Capsule 200 mg PO HS RF: 0 cholecalciferol (vitamin D3) [Vitamin D3] 50 mcg (2,000 unit) Capsule 2,000 unit PO DAILY RF: 0 insulin lispro 100 unit/mL Insulin Pen See Rx Instructions .ROUTE .COMPLEX RF: 0 Levemir FlexTouch U-100 Insuln 100 unit/mL (3 mL) insulin pen 40 unit SC BID RF: 0 pantoprazole 40 mg Tablet,Delayed Release (Dr/Ec) 40 mg PO DAILY RF: 0 multivitamin Capsule 1 cap PO QAM RF: 0 PreserVision AREDS-2 250-90-40-1 mg Capsule 2 tab PO QAM RF: 0 artificial tears solution Drops 1 drp OPHTHALMIC (EYE) QID RF: 0 Discontinued acetaminophen 325 mg Tablet 650 mg PO Q6 MDD 3 GM APAP/24 HOURS PRN (Reason: Fever Or Pain) RF: 0 Discharge Orders: Discharge Order (Routine); Ordered 12/10/21 Ordered By: Dash Lynn Admission Data Admit Date/Time: 12/06/21 17:08 Attending Provider: Dayron De Los Santos Admit Provider: Dayron De Los Santos Primary Care Provider: [place] Other Interventions: Discharge Summary Assessment (RN) Last Done: 12/10/21 13:26
== END 2021-12-10 15:45 | DRG 988 ==
LOC: ASU 13:10 → 3N 17:08